=== PATIENT | female | born 1970 | race Caucasian/White ===

== ENCOUNTER 2025-07-31 10:47 | Inpatient (IN) | payer MEDICARE, OTHER, SELFPAY ==
[2025-07-31 10:49] VITALS: BP 131/96; PULSE 83; RESP 14; TEMP 36.7; O2SAT 100
[2025-07-31 10:56] VITALS: BP 131/96; O2SAT 100
--- NOTE | 2025-07-31 11:00 | CT_ITS ---
WS: [id number] Exam: CT abdomen pelvis w con* [id number] Date/Time of Exam: 07/31/2025 11:01 AM Reason For Exam: abd pain DLP: 378.[address] scans at [facility] use at least one of these dose optimization techniques: automated exposure control; mA and/or kV adjustment per patient size (includes targeted exams where dose is matched to clinical indication); or iterative reconstruction. No comparisons. Mild fibrous changes noted in the lower lung zones most likely chronic in nature. The liver, gallbladder, spleen and pancreas appear normal. Normal adrenal glands and kidneys. The abdominal aorta and IVC are normal in caliber. There is mild to moderate gaseous and fluid dilatation of the duodenal C-loop. Remaining small bowel loops are normal in caliber. RIGHT lower quadrant ostomy is noted. No lymphadenopathy. No free air. Postoperative changes with sutures noted in the region of the rectosigmoid colon with soft tissue thickening in the presacral and precoccygeal area. This could be secondary to postoperative change or postradiation change however recurrent neoplasm could have the same appearance. Moderate distention of the urinary bladder. No obvious pelvic lymphadenopathy. No sign of acute appendix. The appendix is difficult to define. No destructive bone lesions. Biconcave old compression fracture of L5. CT/CT abdomen pelvis w con* [id number] IMPRESSION: 1. Mild to moderate fluid and gaseous distention of the duodenal C-loop. This c ould represent localized ileus or less likely partial obstruction. 2. RIGHT lower quadrant ostomy. 3. Postoperative changes in the region of the rectosigmoid colon. There is soft tissue thickening in the presacral and precoccygeal area that could be seconda ry to postoperative or postradiation change however recurrent neoplasm in this area could have the same appearance. There are no comparison exams to determine the chronicity of these changes.
[2025-07-31 11:11] LABS: Hematocrit 43.9 % (36-47); Hemoglobin 15.00 g/dL (11.27-16.99); Mean Corpuscular HGB Conc 34.2 g/dL (30-55); Mean Corpuscular Hemoglobin 30.5 pg (27-33); Mean Corpuscular Volume 89.2 fl (85-98); Nucleated Red Blood Cells % 0 %; Platelet Count 185 10^3/cmm (157-399); Red Blood Count 4.92 10^6/uL (3.85-5.65); White Blood Count 5.79 10^3/uL (3.29-11.43)
--- NOTE | 2025-07-31 11:23 | ED_ITS ---
HPI - General Adult 2 General: Chief complaint: General Medical Stated complaint: mhe Time Seen by Provider: 07/31/25 10:48 History of Present Illness: 55-year-old female presents to the [facility] ency room with complaints of weight loss.. She has a history of schizophrenia. She states she is not eating or drinking because she finds the food and water repulsive. She has a history of schizophrenia she has a guardian is in the [place] [facility] because of failure to thrive. Associated symptoms: Reports malaise and nausea; Deny chest pain, dyspnea or rash Related Data Home Medications ?Medication ?Instructions ?Recorded ?Confirmed acetaminophen 500 mg tablet 500 mg PO Q6H PRN Fever Or Pain 07/31/25 07/31/25 (Tylenol Extra Strength) pantoprazole 40 mg tablet,delayed 40 mg PO DAILY 07/3107/31/25 release polyethylene glycol 3350 17 17 g PO DAILY PRN Constipa tion 07/31/25 07/31/25 gram/dose oral powder vit no.95-ferrous 1 tab PO DAILY 07/31/25 fumarate 28 mg-folic acid 800 mcg tablet () risperidone 0.5 mg tablet 0.5 mg PO BID 07/31/2507/31 Allergies Allergy/AdvReac Type Severity Reaction Status Date / Time iodine Allergy Unknown Verified 07/31/25 10:54 Review of Systems 2 Const: Reports: change in appetite, fatigue and malaise; Denies: fever(s) or chills Card: Denies: chest pain Resp: Denies: dyspnea GI: Reports: abdominal pain and nausea : Denies: dysuria, urinary frequency or urinary urgency Musc: Denies: neck pain or back pain Skin/Breast: Denies: rash PFSH ED 2 PFSH: Medical History Schizophrenia Anorexia Major depressive disorder Colon cancer metastasized to multiple sites Surgical History H/O resection of rectum H/O: hysterectomy H/O pneumonectomy History of creation of ostomy History of colon resection Family History Father Pulmonary fibrosis Mother No problems noted. Social History Smoking and tobacco/nicotine status: never used tobacco/nicotine Alcohol intake: never Substance/Drug Use: never Household members: other Details: Did not know Mother Housing: Assisted Living Facility Physical Exam 2 Const: GENERAL APPEARANCE: cooperative ORIENTATION/CONSCIOUSNESS: Yes awake HENMT: COMMON NORMALS: normocephalic, atraumatic and hearing grossly normal bilaterally HEAD & SCALP: normocephalic and atraumatic Resp: COMMON NORMALS: normal respiratory effort, No retractions, No use of accessory muscles and clear to auscultation bilaterally AUSCULTATION: clear to auscultation bilaterally Cardio: COMMON NORMALS: regular rate, regular rhythm and No murmurs present (Cardio) RATE: regular rate RHYTHM: regular rhythm GI: COMMON NORMALS: No hepatosplenomegaly present AUSCULTATION: Yes Hypoactive bowel sounds present PALPATION: Yes Tenderness to palpation present (GI) (Diffuse), No Guarding due to palpation present (GI) and Yes No hepatosplenomegaly present Back/Pelvis: OTHER: Examination of the presacral area there is no evidence of any skin breakdown or ulceration there is some scarring there from previous sacral ulcers. No active wounds or open ulcers at this time Extremity: COMMON NORMALS: normal to inspection, capillary refill normal, no clubbing, cyanosis or edema, no calf tenderness and no pedal edema Skin: COMMON NORMALS: no rashes or lesions noted GENERAL SKIN EXAM: no rashes or lesions noted Course 2 Vital Signs: Vital signs: Vital Signs Temperature 98.0 F 07/31/25 10:49 Pulse Rate 83 07/31/25 10:49 Respiratory Rate 14 07/31/25 10:49 Blood Pressure 124/84 07/31/25 14:29 Pulse Oximetry 99 07/31/25 14:29 Oxygen Delivery Me thod Room Air 07/31/25 10:56 MDM - General Adult Medical Decision Making Patient would not tolerate exam of the abdomen well. She is complaining of abdominal pain and is question on the CT of ileus. This could actually inhibit her eating and affect her appetite. Discussed with hospitalist with general surgery and psychiatry will admit to the hospital. Evaluate further for medical causes of her decreased appetite she has had extensive evaluation in the past had significant weight loss 1 point that was associated with mental health issues. She has previously been hospitalized here as well as in [place]. Discussed with her father who is her guardian at this point in order to medically fully clear her will need to evaluate the CT findings suggestive of possible ileus. Dr. Ricketts will see her for this simultaneously Dr. Calderon will see her and evaluate her for ongoing mental health issues. Reviewed findings with father. Medical Records I reviewed the patient's medical records. Lab Data I reviewed the patient's lab results. 07/31/25 11:04 07/31/25 11:04 Radiology Impressions Abdomen/Pelvis CT 07/31/25 11:00 IMPRESSION: 1. Mild to moderate fluid and gaseous distention of the duodenal C-loop. This could represent localized ileus or less likely partial obstruction. 2. RIGHT lower quadrant ostomy. 3. Postoperative changes in the region of the rectosigmoid colon. There is soft tissue thickening in the presacral and precoccygeal area that could be secondary to postoperative or postradiation change however recurrent neoplasm in this area could have the same appearance. There are no comparison exams to determine the chronicity of these changes. Laboratory Results WBC 5.79 10^3/uL (3.29-11.43) 07/31/25 11:04 RBC 4.92 10^6/uL (3.85-5.65) 07/31/25 11:04 Hgb 15.00 g/dL (11.27-16.99) 07/31/25 11:04 Hct 43.9 % (36-47) 07/31/25 11:04 MCV 89.2 fl (85-98) 07/31/25 11:04 MCH 30.5 pg (27-33) 07/31/25 11:04 MCHC 34.2 g/dL (30-55) 07/31/25 11:04 RDW 12.9 % (12.1-15.1) 07/31/25 11:04 Plt Count 185 10^3/cmm (157-399) 07/31/25 11:04 MPV 11.2 fL (7.4-10.4) H 07/31/25 11:04 Neut % (Auto) 74.1 % 07/31/25 11:04 Lymph % (Auto) 21.1 % 07/31/25 11:04 Moffat % (Auto) 4.3 % 07/31/25 11:04 Eos % (Auto) 0.0 % 07/31/25 11:04 Baso % (Auto) 0.2 % 07/31/25 11:04 Neut # (Auto) 4.29 10^3/uL (1.8-7.7) 07/31/25 11:04 Lymph # (Auto) 1.2 10^3/uL (0.8-4.8) 07/31/25 11:04 Moffat # (Auto) 0.3 10^3/uL (0.2-0.9) 07/31/25 11:04 Eos # (Auto) 0.0 10^3/uL (0.0-0.8) 07/31/25 11:04 Baso # (Auto) 0.0 10^3/uL (0.0-0.1) 07/31/25 11:04 Nucleated RBC % (auto) 0 % 07/31/25 11:04 Nucleated RBCs # 0.0 /100WBC 07/31/25 11:04 Sodium 140 mmol/L (136-145) 07/31/25 11:04 Potassium 3.5 mmol/L (3.5-5.1) 07/31/25 11:04 Chloride 102 mmol/L (98-107) 07/31/25 11:04 Carbon Dioxide 15 mmol/L (22-29) L 07/31/25 11:04 Anion Gap 26.5 (5-19) H 07/31/25 11:04 BUN 16 mg/dL (6-20) 07/31/25 11:04 Creatinine 0.7 mg/dL (0.5-0.9) 07/31/25 11:04 GFR Calculation 87.5 mL/min (90-130) L 07/31/25 11:04 Glucose 66 mg/dL (65-115) 07/31/25 11:04 Calculated Osmolality 289 mOsm/kg (285-295) 07/31/25 11:04 Calcium 9.5 mg/dL (8.5-10.5) 07/31/25 11:04 Total Bilirubin 0.7 mg/dL (0.15-1.2) 07/31/25 11:04 AST 21 U/L (0-32) 07/31/25 11:04 ALT 25 U/L (0-33) 07/31/25 11:04 Alkaline Phosphatase 59 U/L (35-105) 07/31/25 11:04 Total Protein 8.1 g/dL (6.6-8.7) 07/31/25 11:04 Albumin 4.8 g/dL (3.5-5.2) 07/31/25 11:04 Globulin 3.3 g/dL (1.3-4.6) 07/31/25 11:04 Salicylates < 0.3 mg/dL (3-10) L 07/31/25 11:04 Acetaminophen < 5.0 ug/mL (10-30) L 07/31/25 11:04 All radiology interpretation(s) finalized by discharge Discharge Plan Discharge Patient Disposition: Placed in Observation Clinical Impression: Ileus, History of cancer of rectosigmoid junction, Schizophrenia Coding Level of Care Code ED [employer] Administrator for Antonia Mortensen
[2025-07-31 11:35] LABS: Alanine Aminotransferase 25 U/L (0-33); Albumin Level 4.8 g/dL (3.5-5.2); Alkaline Phosphatase 59 U/L (35-105); Anion Gap 26.5 (5-19); Aspartate Amino Transferase 21 U/L (0-32); Blood Urea Nitrogen 16 mg/dL (6-20); Calcium 9.5 mg/dL (8.5-10.5); Carbon Dioxide 15 mmol/L (22-29); Chloride 102 mmol/L (98-107); Globulin 3.3 g/dL (1.3-4.6); Glucose 66 mg/dL (65-115); Osmolality Calculated 289 mOsm/kg (285-295); Potassium 3.5 mmol/L (3.5-5.1); Sodium 140 mmol/L (136-145); Total Protein 8.1 g/dL (6.6-8.7)
[2025-07-31 11:37] LABS: Acetaminophen < 5.0 ug/mL (10-30); Salicylate < 0.3 mg/dL (3-10)
[2025-07-31] MEDS: methylPREDNISolone sod succ 40 mg/mL INJ IVP (13:05)
[2025-07-31] MEDS: diphenhydrAMINE 50 mg/mL SDV 1mL IVP (13:05)
[2025-07-31] MEDS: iohexol 350 mg/mL 500 mL Btl (per mL) IV (13:26)
--- NOTE | 2025-07-31 13:34 | PC.NURSE ---
Pt making inappropriate statements towards staff. Nurse told pt it is not funny to be making such statements.
--- NOTE | 2025-07-31 14:19 | PM.MISC ---
Miscellaneous Note Note: Full consult note to follow. Consulted to rule out bowel obstruction. Low suspicion for bowel obstruction. Recommend UGI study to rule out obstruction. Will be admitted to medicine for UGI study and subsequent psychiatric workup.
--- NOTE | 2025-07-31 14:21 | PM.CONSULT ---
Providers/Reason For Consult Consulting Physician/Specialty*: Dr. Ricketts general surgery Reason for Consult*: Rule out bowel obstruction Primary Care Provider: Cal Torres History of Present Illness History of Present Illness Lamar Duke is a 55 year old female whom surgery was consulted to rule out a bowel obstruction. Ostomy is functional. Patient reported some nausea initially. Abdomen is benign. Reviewed CT scan which shows no hard evidence of a bowel obstruction. Medications/Allergies Home Medications ?Medication ?Instructions ?Recorded ?Confirmed ?Last Taken ?Type acetaminophen 500 mg tablet 500 mg PO Q6H PRN Fever Or Pain 07/31/25 07/31/25 07/28/25 05:00 History (Tylenol Extra Strength) pantoprazole 40 mg tablet,delayed 40 mg PO DAILY 07/31/25 07/31/25 07/31/25 06:00 History release polyethylene glycol 3350 17 17 g PO DAILY PRN Constipation 07/31/25 07/31/25 Unknown History gram/dose oral powder vit no.95-ferrous 1 tab PO DAILY 07/31/25 07/31/25 07/31/25 06:00 History fumarate 28 mg-folic acid 800 mcg tablet () risperidone 0.5 mg tablet 0.5 mg PO BID 07/31/25 07/31/25 07/31/25 06:00 History Allergies Allergy/AdvReac Type Severity Reaction Status Date / Time iodine Allergy Unknown Verified 07/31/25 10:54 PFSH Acute PFSH: Medical History (Updated 08/01/25 @ 19:14 by Cruz Biswas MD) Schizophrenia Anorexia Major depressive disorder Colon cancer metastasized to multiple sites Surgical History H/O resection of rectum H/O: hysterectomy H/O pneumonectomy History of creation of ostomy History of colon resection Family History Father Pulmonary fibrosis Mother No problems noted. Social History (Updated 07/31/25 @ 16:01 by Stuart Linn MD) Smoking and tobacco/nicotine status: never used tobacco/nicotine Alcohol intake: never Substance/Drug Use: never Household members: other Details: Did not know Mother Housing: Assisted Living Facility Vitals/I&O/Wt Last Vital Signs Temp 98.0 F 07/31/25 10:49 Pulse 83 07/31/25 10:49 Resp 14 07/31/25 10:49 BP 131/96 07/31/25 10:56 Pulse Ox 100 07/31/25 10:56 O2 Del Method Room Air 07/31/25 10:56 Weight last 48 hrs Weight 129 lb Physical Exam Narrative: Chest: Unlabored breathing room air. No lymphadenopathy. Heart: Regular rate and rhythm. Abdomen: Soft, nontender, nondistended. Ostomy functional. Data 08/02/25 03:07 08/02/25 03:07 A&P Assessment and plan 1. Ileus: Plan: 55-year-old female whom surgery was consulted to rule out bowel obstruction. Clinical picture not consistent with bowel obstruction. Consider upper GI study to rule out bowel obstruction. PDMP PDMP Reviewed: Not Reviewed Coding Level of Care Code 97165 Diagnoses Ileus K56.7
[2025-07-31 14:29] VITALS: BP 124/84; O2SAT 99
--- NOTE | 2025-07-31 15:44 | PM.HP ---
Providers/Chief Complaint Admitting Physician: Dr. Linn Primary Care Provider: Cal Torres Chief Complaint: not eating History of Present Illness Lamar Duke is a 55 year old female presenting for not eating and weight loss. PMHx is significant for colon cancer and MDD with schizophrenia, prior episodes of anorexia with significant weight loss in the past. She has had colon and rectal resection and has ostomy in place. She has been admitted to the psych [facility] at other hospitals at times in the past. She has been living in a assisted living facility for the last 6 years. She was discharged from her current facility and is not able to go back there per family. She was brought to the ER for further evaluation of not eating and weight loss. CT was suggestive of possible SOB vs ileus and she was admitted for further evaluation. The patient states she has no obstruction. She had diarrhea last few days and states the food and water at the facility is terrible and won't eat it. The father states that nothing has changed at the facility. Review of Systems Const: Denies: fever(s), chills or body aches Eyes: Denies: blurry vision Card: Denies: chest pain or palpitations Resp: Denies: dyspnea or productive cough GI: Denies: abdominal pain, nausea or vomiting : Denies: flank pain or difficulty voiding Musc: Denies: neck pain, back pain or extremity pain Skin/Breast: Denies: rash, pruritus or skin tenderness Neuro: Denies: headache(s) or sensory changes Psych: Denies: anxiety or depression Medications/Allergies Home Medications ?Medication ?Instructions ?Recorded ?Confirmed ?Last Taken ?Type acetaminophen 500 mg tablet 500 mg PO Q6H PRN Fever Or Pain 07/31/25 07/31/25 07/28/25 05:00 History (Tylenol Extra Strength) pantoprazole 40 mg tablet,delayed 40 mg PO DAILY 07/31/25 07/31/25 07/31/25 06:00 History release polyethylene glycol 3350 17 17 g PO DAILY PRN Constipation 07/31/25 07/31/25 Unknown History gram/dose oral powder vit no.95-ferrous 1 tab PO DAILY 07/31/25 07/31/25 07/31/25 06:00 History fumarate 28 mg-folic acid 800 mcg tablet () risperidone 0.5 mg tablet 0.5 mg PO BID 07/31/25 07/31/25 07/31/25 06:00 History Allergies Allergy/AdvReac Type Severity Reaction Status Date / Time iodine Allergy Unknown Verified 07/31/25 10:54 PFSH Acute PFSH: Medical History (Updated 07/31/25 @ 16:05 by Tom Rangel DO) Schizophrenia Anorexia Major depressive disorder Colon cancer metastasized to multiple sites Surgical History H/O resection of rectum H/O: hysterectomy H/O pneumonectomy History of creation of ostomy History of colon resection Family History Father Pulmonary fibrosis Mother No problems noted. Social History (Updated 07/31/25 @ 16:01 by Stuart Linn MD) Smoking and tobacco/nicotine status: never used tobacco/nicotine Alcohol intake: never Substance/Drug Use: never Household members: other Details: Did not know Mother Housing: Assisted Living Facility Vitals/I&O/Wt Last Vital Signs Temp 98.0 F 07/31/25 10:49 Pulse 83 07/31/25 10:49 Resp 14 07/31/25 10:49 BP 124/84 07/31/25 14:29 Pulse Ox 99 07/31/25 14:29 O2 Del Method Room Air 07/31/25 10:56 Weight last 48 hrs Weight 58.513 kg Physical Exam Const: COMMON NORMALS: no acute distress HENMT: COMMON NORMALS: normocephalic and atraumatic Eye: COMMON NORMALS: Equal, round and reactive pupils present and EOMs intact bilaterally Neck/C-Spine: COMMON NORMALS: full ROM and no lymphadenopathy Lymph: LYMPHATIC: no lymphadenopathy noted Resp: COMMON NORMALS: normal respiratory effort, No retractions and clear to auscultation bilaterally Cardio: COMMON NORMALS: regular rate, regular rhythm, S1 normal heart sound present, S2 normal heart sound present and No gallops present (Cardio) GI: COMMON NORMALS: Soft to palpation and non-tender OTHER: ostomy Extremity: COMMON NORMALS: full ROM Neuro: COMMON NORMALS: patient oriented x3 and CN's II-XII intact bilaterally Psych: COMMON NORMALS: mental status grossly normal, Normal thought process present, cooperative and normal affect Skin: COMMON NORMALS: no rashes or lesions noted and no wounds Data 07/31/25 11:04 07/31/25 11:04 A&P Assessment and plan 1. Ileus: 2. History of cancer of rectosigmoid junction: 3. Schizophrenia: Plan: 55 year old female presenting after weight loss, not eating. Anorexia MDD H/O reported schizophrenia Moderate protein calorie malnutrition - on prior episode of anorexia, patient weighted 65 lbs, currently 128 lbs - last ate on Thursday. - CT demonstrated possible localized ileus vs. partial obstruction - General surgery consulted in ER, low suspicion for obstruction, recommending upper GI study - psych consulted in ER H/O stage 4 colon cancer - prior rectal and bowel resection, ostomy in place - ostomy care Diet: regular, NPO after midnight for UGI PPx: SCDs, hold AC for possible procedure Disposition - full code - consult case mgmt for discharge planning, apparently she cannot return to her assisted living facility - cont. home meds PDMP PDMP Reviewed: Not Reviewed Attestations Medical Necessity Statement*: Admitted to observation for possible SBO Coding Level of Care Code Acute Code for Chg Fwd Diagnoses Ileus K56.7 History of cancer of rectosigmoid junction Z85.048 Schizophrenia F20.9
[2025-07-31 16:07] VITALS: BP 105/68; PULSE 79; RESP 16; O2SAT 100
[2025-07-31 17:07] VITALS: BMI 22.0
[2025-07-31] MEDS: D5-NS 0.45% + KCL 20 mEq 20 MEQ/1,000 ML BAG 100 MEQ IV (17:52)
[2025-07-31 19:30] VITALS: BP 90/73; PULSE 106; RESP 16; TEMP 36.8; O2SAT 97
[2025-07-31 23:53] VITALS: BP 123/85; PULSE 105; RESP 15; TEMP 36.9; O2SAT 96
[2025-08-01] MEDS: D5-NS 0.45% + KCL 20 mEq 20 MEQ/1,000 ML BAG 100 MEQ IV ×3 (03:19→23:39)
[2025-08-01 03:29] VITALS: BP 113/71; PULSE 89; RESP 16; TEMP 36.9; O2SAT 96
[2025-08-01 04:50] LABS: Hematocrit 39.9 % (36-47); Hemoglobin 13.90 g/dL (11.27-16.99); Mean Corpuscular HGB Conc 34.8 g/dL (30-55); Mean Corpuscular Hemoglobin 30.6 pg (27-33); Mean Corpuscular Volume 87.9 fl (85-98); Nucleated Red Blood Cells % 0 %; Platelet Count 185 10^3/cmm (157-399); Red Blood Count 4.54 10^6/uL (3.85-5.65); White Blood Count 6.40 10^3/uL (3.29-11.43)
[2025-08-01 05:31] LABS: Alanine Aminotransferase 19 U/L (0-33); Albumin Level 4.3 g/dL (3.5-5.2); Alkaline Phosphatase 53 U/L (35-105); Anion Gap 23.9 (5-19); Aspartate Amino Transferase 15 U/L (0-32); Blood Urea Nitrogen 10 mg/dL (6-20); Calcium 8.8 mg/dL (8.5-10.5); Carbon Dioxide 12 mmol/L (22-29); Chloride 108 mmol/L (98-107); Creatinine Clr Calc Pharmacy 77.4524; Globulin 2.8 g/dL (1.3-4.6); Glucose 160 mg/dL (65-115); Osmolality Calculated 292 mOsm/kg (285-295); Potassium 3.9 mmol/L (3.5-5.1); Sodium 140 mmol/L (136-145); Total Protein 7.1 g/dL (6.6-8.7)
[2025-08-01 06:47] LABS: Ketone (Acetest) Serum Positive (Negative)
[2025-08-01 07:27] LABS: ABG PCO2 31.3 mmHg (35-45); ABG PH Result 7.31 (7.35-7.45); Alveolar-Arterial Oxygen Gradi 0.9 mmHg (5-10); Arterial Blood Gas Hematocrit 44.5 % (37-47); Blood Gas Sample Type Arterial; Carboxyhemoglobin 0.9 %THgb (0.4-20.1); Glucose Level-ABG 138.0 mg/dL (70-115); HCO3 ABG 15.6 mmol/L (22-26); Ionized Calcium Level - ABG 1.3 mmol/L (1.1-1.4); Methemoglobin 1.1 % (0.4-1.5); Oxygen Saturation ABG 98.8; PO2 ABG 101.0 mmHg (80.0-100.0); Potassium Level - ABG 3.9 mmol/L (3.5-5.0); Sodium Level - ABG 142.0 mmol/L (131-143)
[2025-08-01 07:28] LABS: Blood Gas Operator Identificat GD; Blood Gas Sample Site Brachial, left; PO2 FiO2 Ratio Arterial Blood 480
[2025-08-01 07:59] VITALS: BP 113/77; PULSE 96; RESP 16; TEMP 36.8; O2SAT 96
[2025-08-01] MEDS: PRENATAL VIT NO.130/IRON/FOLIC 1 EACH TABLET PO (08:09)
--- NOTE | 2025-08-01 08:23 | PC.NURSE ---
Notified Dr Linn patient refused risperidone and father also notified.
--- NOTE | 2025-08-01 10:56 | PC.CHAP ---
Pastoral Care Encounter/Spiritual Assessment Type of Contact [x] Declined rejoiner visit [] Patient/Family/Request visit [] Outpatient visit [] Follow-up visit [] Physician referral [] Code/Alert [] Routine visit [] Staff referral [] Actively dying [] Patient sleeping [] Family support [] [] Out of room [] Palliative care [] [] Receiving care in room [] Pre-surgical visit [] Trauma [] Long length of stay [] ICU visit [] Other: Relational/Emotional Strength [] Patient feels connected with others/family/visitors/staff [] Distress [] Loneliness/isolation [] Abandonment Spirituality of Patient [] Person of Cheryl [] Attends Lutheran of their Cheryl [] Believes in Prayer [] Reads Bible or Samaritan materials [] There are Spiritual issues to be addressed Airline Hostess Interventions [] Prayer [] Active listening [] Non-anxious presence [] Spiritual/emotional support [] Crisis/trauma care [] Spiritual counseling [] Bereavement support [] Provided bereavement packet [] Provided Bible/devotional materials [] Provided toy/stuffed animal, coloring book to patient or family member [] Provided Communion [] Anointing/[place] [] Salvation [] Completed spiritual assessment [] Other: Impact on Illness or Injury [] Angry [] Fearful [] Anxious [] Often cries [] Exhaustion [] Unable to work [] Unable to attend faith [] Unable to walk/stand [] Unable to read [] Unable to drive [] Unable to eat/drink [] Unable to sleep [] Unable to be with family [] Patient intubated [] Other: Summary Time spent with patient
[2025-08-01 11:19] VITALS: BP 119/74; PULSE 84; RESP 17; TEMP 36.9; O2SAT 98
--- NOTE | 2025-08-01 13:22 | P.PN_ITS ---
Subjective 2 Subjective: Having BMs, diet advance to CLD. Vitals/I&O/Wt Last Vital Signs Temp 98.5 F 08/01/25 11:19 Pulse 84 08/01/25 11:19 Resp 17 08/01/25 11:19 BP 119/74 08/01/25 11:19 Pulse Ox 98 08/01/25 11:19 O2 Del Method Room Air 08/01/25 11:19 07/31/25 08/01/25 08/01/25 22:59 06:59 14:59 Intake Total 50 / 50 945 / 995 983.333 / 983.333 Output Total 550 / 550 500 / 500 Balance -500 / -500 945 / 445 483.333 / 483.333 Weight last 48 hrs Weight 63.758 kg Weight 61.87 kg Weight 58.513 kg Physical Exam 2 Narrative: Physical Exam Const: no acute distress HENMT: normocephalic and atraumatic Eye: Equal, round and r eactive pupils pre sent and EOMs inta ct bilaterally Neck/C-Spine: full ROM and no ly mphadenopathy Lymph: no lymphadenopathy noted Resp: normal respiratory effort, No retrac tions and clear to auscultation bila terally Cardio: regular rate, regu lar rhythm, S1 nor mal heart sound pr esent, S2 normal h eart sound present and No gallops pr esent GI: Soft to palpation and non-tender, os carloz in place Extremity: full ROM Neuro: patient oriented x 3 and CN's II-XII intact bilaterally Psych: mental status nicolasa sly normal, Normal thought process p resent, cooperativ e and normal affec t Skin: no rashes or lesio ns noted and no wo unds Data 08/01/25 04:18 08/01/25 04:18 A&P Assessment and plan 1. Ileus: 2. History of cancer of rectosigmoid junction: 3. Schizophrenia: Plan: 55 year old female presenting after weight loss, not eating. Anorexia MDD H/O reported schizophrenia Moderate protein calorie malnutrition - on prior episode of anorexia, patient weighted 65 lbs, currently 128 lbs, BMI 22.7 - last ate on Thursday. - CT demonstrated possible localized ileus vs. partial obstruction - General surgery consulted in ER, low suspicion for obstruction, no plans for intervention currently - psych consulted in ER H/O stage 4 colon cancer - prior rectal and bowel resection, ostomy in place - ostomy care Diet: CLD, advance to regular as able. PPx: SCDs, start lovenox Disposition - full code - consult case mgmt for discharge planning, apparently she cannot return to her assisted living facility, will likely need LVL 2. - cont. home meds PDMP PDMP Reviewed: Not Reviewed Attestations 2 Medical Necessity Statement*: Change to inpatient for anorexia, electrolyte replacement. Time Spent in Patient Care: 16 - 35 minutes (>than 50% of time sp ent in counselling and/or direct pt care on unit) . Coding Level of Care Code Acute Code for Chg Fwd Diagnoses Ileus K56.7 History of cancer of rectosigmoid junction Z85.048 Schizophrenia F20.9
--- NOTE | 2025-08-01 13:32 | P.PN_ITS ---
Subjective 2 Subjective: No nausea Ostomy putting out stool and gas No abdominal pain No abdominal distension Refusing UGI study Vitals/I&O/Wt Last Vital Signs Temp 98.5 F 08/01/25 11:19 Pulse 84 08/01/25 11:19 Resp 17 08/01/25 11:19 BP 119/74 08/01/25 11:19 Pulse Ox 98 08/01/25 11:19 O2 Del Method Room Air 08/01/25 11:19 07/31/25 08/01/25 08/01/25 22:59 06:59 14:59 Intake Total 50 / 50 945 / 995 983.333 / 983.333 Output Total 550 / 550 500 / 500 Balance -500 / -500 945 / 445 483.333 / 483.333 Weight last 48 hrs Weight 140 lb 9 oz Weight 136 lb 6.4 oz Weight 129 lb Physical Exam 2 Narrative: unlabored breathing ra rrr abdomen soft, nd, ostomy functional and putting out gas and stool. Patient refusing palpation of abdomen Data 08/01/25 04:18 08/01/25 04:18 A&P Assessment and plan 1. Ileus: Plan: 55yo female whom surgery was consulted to rule out bowel obstruction. Clinically not obstructed. Patient refusing UGI study. OK to advance diet as tolerated. Rest of care per medicine. PDMP PDMP Reviewed: Not Reviewed Attestations 2 Medical Necessity Statement*: NA Coding Level of Care Code 48468 Diagnoses Ileus K56.7
[2025-08-01 15:25] VITALS: BP 131/80; PULSE 87; RESP 17; TEMP 36.3; O2SAT 97
--- NOTE | 2025-08-01 18:14 | PC.NURSE ---
Patient refused respiridone for the 2nd time today. Patient physician and father aware.
--- NOTE | 2025-08-01 18:49 | P.NPUCON_ITS ---
Providers/Reason for Consult 2 Consulting Physican/Specialty*: [facility]/Psychiatry Reason for Consult*: food refusal Attending Physician: Stuart Linn MD Primary Care Provider: Cal Torres Psych Consult HPI History of Present Illness Lamar Duke is a 55 year old female who presented to the emergency department with complaints of weight loss. She had allegedly been residing at a correction and was not eating or drinking as she had found the food and water to be repulsive. The patient has her father as the legal guardian for reportedly the last 6 years. The patient reports that she had been diagnosed initially with colon cancer more than 20 years ago. She reports she is not schizophrenic and reports that she is not currently depressed. She states that she is simply refusing to eat at the correction because the food has become inedible within the last year. She states that prior to that time, she was eating fine. She reports that the current food here has also been inedible. She reports that she simply wants a plain tasty set of mashed potatoes. The patient denied any history of psychosis. She reports that she has no problems with anxiety. She reported no history of binge eating or purging behaviors. She denied any substance abuse issues. She reports that she is currently not having thoughts of hurting herself or anyone else. She was able to answer the question regarding what would happen if she discontinued or quit eating overall as she reported that she would become seriously ill. She denied any body image distortion. The patient did not offer commentary when asked whether she had fear of engaging in oral intake with any potential concern about avoiding pain secondary to a previous problem with abdominal discomfort with oral intake. She did report in general having a lack of appetite. She denied any negative body image. She had minimized having any fear of eating. She did endorse frequently having problems with fatigue and did report having changes to her senses regarding food. There is no prior history of saleem. There was no clear history of obsessive-compulsive disorder. She had refused her Risperdal prescribed stating that she did not need this. The patient was evasive when asked questions regarding why her father had assumed guardianship over her 6 years ago. Psychiatric history: None reported. She reported no prior history of inpatient substance abuse treatment as well Legal history: None Allergies: Iodine Medications: Pantoprazole, acetaminophen, Risperdal 0.5 mg twice a day, iron Medical/Surgical history: as stated Social History: Patient lives in [facility] since 2019, has 2 adult children and several grandchildren. She reports from 1st and only . She reported no history of trauma. She was raised by parents and states father was in . She reports having graduated HS in [employer]. Meds Home Medications and Allergies Home Medications ?Medication ?Instructions ?Recorded ?Confirmed ?Last Taken ?Type acetaminophen 500 mg tablet 500 mg PO Q6H PRN Fever Or Pain 07/31/25 07/31/25 07/28/25 05:00 History (Tylenol Extra Strength) pantoprazole 40 mg tablet,delayed 40 mg PO DAILY 07/3107/31/25 07/31/25 06:00 History release polyethylene glycol 3350 17 17 g PO DAILY PRN Constipa tion 07/31/25 07/31/25 Unknown History gram/dose oral powder vit no.95-ferrous 1 tab PO DAILY 07/31/2507/31/25 06:00 History fumarate 28 mg-folic acid 800 mcg tablet () risperidone 0.5 mg tablet 0.5 mg PO BID 07/31/2507/3107/31/25 06:00 History Allergies Allergy/AdvReac Type Severity Reaction Status Date / Time iodine Allergy Unknown Verified 07/31/25 10:54 Current Medications Current Medications Generic Name Dose Route Start Last Admin Trade Name Freq PRN Reason Stop Dose Admin Enoxaparin Sodium 40 mg 08/01/25 13:45 08/01/25 14:43 Enoxaparin 40 Mg/0.4 Ml Syringe SUBCUT 40 mg Q24H PENNY Administration Potassium Chloride/Dextrose/Sod Cl 20 meq in 1,000 mls @ 100 mls/hr 07/31/25 17:11 08/01/25 13:09 D5-Ns 0.45% + Kcl 20 Meq IV 100 mls/hr .Q10H PENNY Administration Pantoprazole Sodium 40 mg 08/01/25 09:00 08/01/25 08:[address] 40 Mg Tablet PO 40 mg DAILY PENNY Administration Prenat Multivit/[place]/Iron/Folic Ac 1 each 08/01/25 09:00 08/01/25 08:09 Vit No.130/Iron/Folic 1 Each Tablet PO 1 each DAILY PENNY Administration Risperidone 0.5 mg 08/01/25 17:00 08/01/25 18:13 Risperidone 0.25 Mg Tablet PO Not Given BID@0500,1700 [facility] PFSH NPU 2 PFSH: Medical History (Updated 08/01/25 @ 19:14 by Cruz Biswas MD) Schizophrenia Anorexia Major depressive disorder Colon cancer metastasized to multiple sites Surgical History H/O resection of rectum H/O: hysterectomy H/O pneumonectomy History of creation of ostomy History of colon resection Family History Father Pulmonary fibrosis Mother No problems noted. Social History (Updated 07/31/25 @ 16:01 by Stuart Linn MD) Smoking and tobacco/nicotine status: never used tobacco/nicotine Alcohol intake: never Substance/Drug Use: never Household members: other Details: Did not know Mother Housing: Assisted Living Facility Mental Status Exam 2 MSE Comments: White female who appeared her stated age covered by blankets with fleeting eye contact. There was no evidence of any abnormal involuntary motor movements, tics or tremors appreciated. Her speech was normal in regards to rate, rhythm, and prosody. She was quite evasive during the interview. Her mood was described as fine. Her affect was somewhat restricted in range and mood incongruent. Her thought process was linear, logical, and goal-directed. Her thought content revealed no suicidal or homicidal ideation. There was no evidence of any delusional thinking. She did not appear to be responding to internal stimuli. She denied any auditory or visual hallucinations. She was alert and oriented to person, place, time, and situation. She had numerous complaints about not appreciating her food as she repeatedly stated she wanted to eat but wanted to eat better food. Her insight is impaired. Her impulse control appeared fair. Her judgment was limited. Her attention span appeared adequate. Her recent and remote memory were adequate. Vitals/I&O/Wt Last Vital Signs Temp 97.4 F L 08/01/25 15:25 Pulse 87 08/01/25 15:25 Resp 17 08/01/25 15:25 BP 131/80 08/01/25 15:25 Pulse Ox 97 08/01/25 15:25 O2 Del Method Room Air 08/01/25 15:25 08/01/25 08/01/25 08/01/25 06:59 14:59 22:59 Intake Total 945 / 995 983.333 / 983.333 Output Total 500 / 500 200 / 700 Balance 945 / 445 483.333 / 483.333 -200 / 283.333 Weight last 48 hrs Weight 63.758 kg Weight 61.87 kg Weight 58.513 kg Data NPU 08/01/25 04:18 08/01/25 04:18 A&P Assessment and plan 1. Avoidant-restrictive food intake disorder (ARFID): Plan: 55-year-old female who shows evidence of an eating disorder likely characterized by the avoidance or restriction of food intake. It is possible that this was caused by a lack of interest in eating or fear of aversive consequences such as abdominal discomfort or pain. 1. Will continue to follow 2. Will attempt to gather collateral information particularly from legal guardian 3. Supportive strategies may include nutritional counseling, smaller or more frequent meals, possible medications to stimulate appetite. PDMP PDMP Reviewed: Not Reviewed Attestations NPU 2 Medical Necessity Statement*: Inpatient psychiatric hospitalization not medically necessary currently. Coding Level of Care Code Acute Code for Chg Fwd Diagnoses Avoidant-restrictive food intake disorder (ARFID) F50.82
[2025-08-01 19:04] VITALS: BP 125/79; PULSE 77; RESP 16; TEMP 37.1; O2SAT 100
--- NOTE | 2025-08-01 22:14 | PC.NURSE ---
Patient is having output in the colostomy but will not allow this aide to measure properly due to patient changing her own colostomy and immediately disposing of it. This aide requested patient to let us measure output prior to her disposing of it.
[2025-08-01 23:27] VITALS: BP 109/63; PULSE 78; RESP 15; TEMP 36.9; O2SAT 96
[2025-08-02 03:04] VITALS: BP 100/56; PULSE 83; RESP 15; TEMP 36.6; O2SAT 96
[2025-08-02 04:24] LABS: Hematocrit 35.7 % (36-47); Hemoglobin 12.50 g/dL (11.27-16.99); Mean Corpuscular HGB Conc 35.0 g/dL (30-55); Mean Corpuscular Hemoglobin 30.9 pg (27-33); Mean Corpuscular Volume 88.4 fl (85-98); Nucleated Red Blood Cells % 0 %; Platelet Count 146 10^3/cmm (157-399); Red Blood Count 4.04 10^6/uL (3.85-5.65); White Blood Count 5.12 10^3/uL (3.29-11.43)
[2025-08-02 04:51] LABS: Anion Gap 15.6 (5-19); Blood Urea Nitrogen 5 mg/dL (6-20); Calcium 8.5 mg/dL (8.5-10.5); Carbon Dioxide 19 mmol/L (22-29); Chloride 109 mmol/L (98-107); Creatinine Clr Calc Pharmacy 104.5626; Glucose 110 mg/dL (65-115); Osmolality Calculated 288 mOsm/kg (285-295); Potassium 3.6 mmol/L (3.5-5.1); Sodium 140 mmol/L (136-145)
--- NOTE | 2025-08-02 07:13 | P.PN_ITS ---
Subjective 2 Subjective: No acute events overnight Vitals/I&O/Wt Last Vital Signs Temp 97.8 F 08/02/25 03:04 Pulse 83 08/02/25 03:04 Resp 15 08/02/25 03:04 BP 100/56 08/02/25 03:04 Pulse Ox 96 08/02/25 03:04 O2 Del Method Room Air 08/02/25 03:04 08/01/25 08/02/25 08/02/25 22:59 06:59 14:59 Intake Total 1000 / 1983.333 Output Total 200 / 700 300 / 1000 Balance -200 / 283.333 700 / 983.333 Weight last 48 hrs Weight 143 lb 5 oz Weight 140 lb 9 oz Weight 136 lb 6.4 oz Weight 129 lb Physical Exam 2 Narrative: Chest: Unlabored breathing room air. No lymphadenopathy. Heart: Regular rate and rhythm. Abdomen: Soft, nontender, nondistended. No masses or lymphadenopathy. Data 08/04/25 04:10 08/04/25 04:10 A&P Assessment and plan 1. SBO (small bowel obstruction): Plan: 55-year-old female whom surgery was consulted to rule out SBO. No obstructive symptoms. No evidence of SBO. Advance diet as tolerated. PDMP PDMP Reviewed: Not Reviewed Attestations 2 Medical Necessity Statement*: N/A Coding Level of Care Code 13937 Diagnoses SBO (small bowel obstruction) K56.609
[2025-08-02 07:17] VITALS: BP 116/69; PULSE 107; RESP 16; TEMP 36.9; O2SAT 98
[2025-08-02] MEDS: PRENATAL VIT NO.130/IRON/FOLIC 1 EACH TABLET PO (09:36)
[2025-08-02] MEDS: D5-NS 0.45% + KCL 20 mEq 20 MEQ/1,000 ML BAG 100 MEQ IV ×2 (09:37→21:16)
[2025-08-02 12:00] VITALS: BP 103/61; PULSE 119; RESP 18; TEMP 36.7; O2SAT 99
--- NOTE | 2025-08-02 12:18 | P.PN_ITS ---
Subjective 2 Subjective: No new issues. Vitals/I&O/Wt Last Vital Signs Temp 98.0 F 08/02/25 12:00 Pulse 119 H 08/02/25 12:00 Resp 18 08/02/25 12:00 BP 103/61 08/02/25 12:00 Pulse Ox 99 08/02/25 12:00 O2 Del Method Room Air 08/02/25 12:00 08/01/25 08/02/25 08/02/25 22:59 06:59 14:59 Intake Total 1000 / 0301.692 2383.667 / 1236.667 Output Total 200 / 700 300 / 1000 220 / 220 Balance -200 / 283.333 700 / 794.554 5493.667 / 1016.667 Weight last 48 hrs Weight 65.005 kg Weight 63.758 kg Weight 61.87 kg Physical Exam 2 Narrative: Physical Exam Const: no acute distress HENMT: normocephalic and atraumatic Eye: Equal, round and reactive pupils and EOMs intact bilaterally Neck/C-Spine: full ROM and no lymphadenopathy Resp: normal respiratory effort, No retractions and clear to auscultation bilaterally Cardio: regular rate, regular rhythm, S1 normal heart sound present, S2 normal heart sound present and No gallops present GI: Soft to palpation and non-tender, ostomy in place Extremity: full ROM Neuro: patient oriented x 3 and CN's II-XII intact bilaterally Psych: mental status grossly normal, Normal thought process present, cooperative and normal affect Skin: no rashes or lesions noted and no wounds Data 08/02/25 03:07 08/02/25 03:07 A&P Assessment and plan 1. Avoidant-restrictive food intake disorder (ARFID): 2. Schizophrenia: 3. History of cancer of rectosigmoid junction: Plan: 55 year old female presenting after weight loss, not eating. Anorexia MDD H/O reported schizophrenia Moderate protein calorie malnutrition - one prior episode of anorexia, patient weighted 65 lbs, currently 128 lbs, BMI 22.7 - last ate on Thursday. - CT demonstrated possible localized ileus vs. partial obstruction - General surgery consulted in ER, low suspicion for obstruction, no plans for intervention currently - psych consulted in ER - cont. D5 1/2 NS with 20 K at 100 ml/hr until eating/drinking well. H/O stage 4 colon cancer - prior rectal and bowel resection, ostomy in place - ostomy care, having good output. Diet: advance diet to regular. PPx: SCDs, start lovenox Disposition - full code - consult case mgmt for discharge planning, apparently she cannot return to her assisted living facility, will likely need LVL 2. - cont. home meds PDMP PDMP Reviewed: Not Reviewed Attestations 2 Medical Necessity Statement*: Ongoing inpatient care for malnutrition, working on LVL2 placement. Time Spent in Patient Care: 16 - 35 minutes (>than 50% of time sp ent in counselling and/or direct pt care on unit) . Coding Level of Care Code Acute Code for Chg Fwd Diagnoses Avoidant-restrictive food intake disorder (ARFID) F50.82 Schizophrenia F20.9 History of cancer of rectosigmoid junction Z85.048
[2025-08-02 15:42] VITALS: BP 122/74; PULSE 78; RESP 17; TEMP 36.9; O2SAT 97
--- NOTE | 2025-08-02 19:39 | W.PM.NPUPNS ---
Subjective NPU Subjective: 55-year-old female with avoidant/restrictive food intake disorder admitted with continued weight loss and refusal to eat. The patient continued to report having no problems. She appeared wholly disinterested in a conversation with this principal technical writer. She had refused to take her risperidone. She had denied having any problems with her mood. Mental Status Exam MSE Comments: White female who appeared her stated age covered by blankets with minimal eye contact. There was no evidence of any abnormal involuntary motor movements, tics or tremors appreciated. Her speech was normal in regards to rate, rhythm, and prosody. She was quite evasive during the interview. Her mood was described as good. Her affect was irritable. Her thought process was linear, logical, and goal-directed. Her thought content revealed no suicidal or homicidal ideation. There was no evidence of any delusional thinking. She did not appear to be responding to internal stimuli. She denied any auditory or visual hallucinations. She was alert and oriented to person, place, time, and situation. Her insight is impaired. Her impulse control appeared fair. Her judgment was limited. Her attention span appeared adequate. Her recent and remote memory were adequate. Vitals/I&O/Wt Last Vital Signs Temp 98.4 F 08/02/25 15:42 Pulse 78 08/02/25 15:42 Resp 17 08/02/25 15:42 BP 122/74 08/02/25 15:42 Pulse Ox 97 08/02/25 15:42 O2 Del Method Room Air 08/02/25 15:42 08/02/25 08/02/25 08/02/25 06:59 14:59 22:59 Intake Total 999 / 1535.150 0109.667 / 1476.667 240 / 1716.667 Output Total 300 / 1000 220 / 220 500 / 720 Balance 700 / 777.918 5209.667 / 1256.667 -260 / 996.667 Weight last 48 hrs Weight 65.005 kg Weight 63.758 kg Data NPU 08/02/25 03:07 08/02/25 03:07 A&P Assessment and plan 1. Avoidant-restrictive food intake disorder (ARFID): Plan: 55-year-old female who shows evidence of an eating disorder likely characterized by the avoidance or restriction of food intake. It is possible that this was caused by a lack of interest in eating or fear of aversive consequences such as abdominal discomfort or pain. 1. Will continue to follow, spoke with guardian who provided a timeline that supports this diagnosis. This principal technical writer seeking any custodial placement for ARFID. 2. Will attempt to gather collateral information particularly from legal guardian 3. Supportive strategies may include nutritional counseling, smaller or more frequent meals, possible medications to stimulate appetite. PDMP PDMP Reviewed: Not Reviewed Attestations NPU Medical Necessity Statement*: NA Coding Level of Care Code Acute Code for Chg Fwd Diagnoses Avoidant-restrictive food intake disorder (ARFID) F50.82
[2025-08-02 20:00] VITALS: BP 118/71; PULSE 67; RESP 14; TEMP 36.6; O2SAT 100
[2025-08-03] VITALS: BP 115/75; PULSE 75; RESP 14; TEMP 36.9; O2SAT 97
[2025-08-03 04:00] VITALS: PULSE 68; RESP 15; TEMP 36.8; O2SAT 96
[2025-08-03 06:00] VITALS: BMI 23.1
[2025-08-03 07:35] VITALS: BP 119/72; PULSE 69; RESP 17; TEMP 36.6; O2SAT 98
[2025-08-03] MEDS: PRENATAL VIT NO.130/IRON/FOLIC 1 EACH TABLET PO (09:01)
[2025-08-03] MEDS: D5-NS 0.45% + KCL 20 mEq 20 MEQ/1,000 ML BAG 100 MEQ IV ×2 (09:05→17:29)
[2025-08-03 12:39] VITALS: PULSE 67; RESP 17; TEMP 36.8; O2SAT 98
--- NOTE | 2025-08-03 12:43 | PM.PN ---
Vitals/I&O/Wt Last Vital Signs Temp 98.3 F 08/03/25 12:39 Pulse 67 08/03/25 12:39 Resp 17 08/03/25 12:39 BP 119/72 08/03/25 07:35 Pulse Ox 98 08/03/25 12:39 O2 Del Method Room Air 08/02/25 15:42 08/02/25 08/03/25 08/03/25 22:59 06:59 14:59 Intake Total 1240 / 2716.667 1480 / 1480 Output Total 800 / 1020 800 / 800 Balance 440 / 1696.667 680 / 680 Weight last 48 hrs Weight 65.005 kg Weight 65.005 kg Data 08/02/25 03:07 08/02/25 03:07 A&P PDMP PDMP Reviewed: Not Reviewed Coding Level of Care Code Acute Code for Chg Fwd
--- NOTE | 2025-08-03 12:48 | P.PN_ITS ---
Subjective 2 Subjective: drinking broth. Awaiting LVL 2 placement. Vitals/I&O/Wt Last Vital Signs Temp 98.3 F 08/03/25 12:39 Pulse 67 08/03/25 12:39 Resp 17 08/03/25 12:39 BP 119/72 08/03/25 07:35 Pulse Ox 98 08/03/25 12:39 O2 Del Method Room Air 08/02/25 15:42 08/02/25 08/03/25 08/03/25 22:59 06:59 14:59 Intake Total 1240 / 2716.667 1480 / 1480 Output Total 800 / 1020 800 / 800 Balance 440 / 1696.667 680 / 680 Weight last 48 hrs Weight 65.005 kg Weight 65.005 kg Physical Exam 2 Narrative: Physical Exam Const: no acute distress HENMT: normocephalic and atraumatic Eye: Equal, round and reactive pupils and EOMs intact bilaterally Neck/C-Spine: full ROM and no lymphadenopathy Resp: normal respiratory effort, No retractions and clear to auscultation bilaterally Cardio: regular rate, regular rhythm, S1 normal heart sound present, S2 normal heart sound present and No gallops present GI: Soft to palpation and non-tender, ostomy in place Extremity: full ROM Neuro: patient oriented x 3 and CN's II-XII intact bilaterally Psych: mental status grossly normal, Normal thought process present, cooperative and normal affect Skin: no rashes or lesions noted and no wounds Data 08/02/25 03:07 08/02/25 03:07 A&P Assessment and plan 1. Avoidant-restrictive food intake disorder (ARFID): 2. Schizophrenia: 3. History of cancer of rectosigmoid junction: 4. Ileus: Plan: 55 year old female presenting after weight loss, not eating. Anorexia (avoidance/restriction of food intake) MDD H/O reported schizophrenia Moderate protein calorie malnutrition - one prior episode of anorexia, patient weighted 65 lbs, currently 128 lbs, BMI 22.7 - last ate on Thursday. - CT demonstrated possible localized ileus vs. partial obstruction - General surgery consulted in ER, low suspicion for obstruction, no plans for intervention currently - psych consulted in ER - cont. D5 1/2 NS with 20 K at 100 ml/hr until eating/drinking well. - recommend against invasive measures for feeding such as NGT or PEG. H/O stage 4 colon cancer - prior rectal and bowel resection, ostomy in place - ostomy care, having good output. Diet: advance diet to regular. PPx: SCDs, start lovenox Disposition - full code - consult case mgmt for discharge planning, apparently she cannot return to her assisted living facility, will likely need LVL 2. - cont. home meds PDMP PDMP Reviewed: Not Reviewed Attestations 2 Medical Necessity Statement*: ongoing inpatient care for malnutrition. Time Spent in Patient Care: 16 - 35 minutes (>than 50% of time sp ent in counselling and/or direct pt care on unit) . Coding Level of Care Code Acute Code for Chg Fwd Diagnoses Avoidant-restrictive food intake disorder (ARFID) F50.82 Schizophrenia F20.9 History of cancer of rectosigmoid junction Z85.048 Ileus K56.7
[2025-08-03 16:35] VITALS: BP 120/83; PULSE 73; RESP 16; TEMP 36.8; O2SAT 99
[2025-08-03 20:00] VITALS: BP 120/83; PULSE 77; RESP 15; TEMP 36.8; O2SAT 100
[2025-08-04] VITALS: BP 105/68; PULSE 78; RESP 16; TEMP 36.6; O2SAT 97
[2025-08-04 03:12] VITALS: BP 117/72; PULSE 75; RESP 15; TEMP 36.8; O2SAT 98
[2025-08-04] MEDS: D5-NS 0.45% + KCL 20 mEq 20 MEQ/1,000 ML BAG 100 MEQ IV ×2 (03:24→13:44)
[2025-08-04 04:41] LABS: Hematocrit 36.7 % (36-47); Hemoglobin 12.70 g/dL (11.27-16.99); Mean Corpuscular HGB Conc 34.6 g/dL (30-55); Mean Corpuscular Hemoglobin 30.3 pg (27-33); Mean Corpuscular Volume 87.6 fl (85-98); Nucleated Red Blood Cells % 0 %; Platelet Count 128 10^3/cmm (157-399); Red Blood Count 4.19 10^6/uL (3.85-5.65); White Blood Count 4.74 10^3/uL (3.29-11.43)
[2025-08-04 05:05] LABS: Anion Gap 16.6 (5-19); Blood Urea Nitrogen 2 mg/dL (6-20); Calcium 8.7 mg/dL (8.5-10.5); Carbon Dioxide 23 mmol/L (22-29); Chloride 108 mmol/L (98-107); Creatinine Clr Calc Pharmacy 105.4164; Glucose 116 mg/dL (65-115); Osmolality Calculated 295 mOsm/kg (285-295); Potassium 3.6 mmol/L (3.5-5.1); Sodium 144 mmol/L (136-145)
[2025-08-04 06:00] VITALS: BMI 23.6
[2025-08-04 07:46] VITALS: BP 120/79; PULSE 91; RESP 17; TEMP 36.6; O2SAT 97
[2025-08-04] MEDS: PRENATAL VIT NO.130/IRON/FOLIC 1 EACH TABLET PO (08:39)
[2025-08-04 11:46] VITALS: BP 123/76; PULSE 76; RESP 17; TEMP 36.6; O2SAT 99
--- NOTE | 2025-08-04 13:39 | P.PN_ITS ---
Subjective 2 Subjective: No new issues. Vitals/I&O/Wt Last Vital Signs Temp 97.8 F 08/04/25 11:46 Pulse 76 08/04/25 11:46 Resp 17 08/04/25 11:46 BP 123/76 08/04/25 11:46 Pulse Ox 99 08/04/25 11:46 O2 Del Method Room Air 08/04/25 03:12 08/03/25 08/04/25 08/04/25 22:59 06:59 14:59 Intake Total 1260 / 2740 991.667 / 3731.667 240 / 240 Output Total 1000 / 1800 Balance 260 / 940 991.667 / 1931.667 240 / 240 Weight last 48 hrs Weight 66.253 kg Weight 65.005 kg Physical Exam 2 Narrative: Physical Exam Const: no acute distress HENMT: normocephalic and atraumatic Eye: Equal, round and reactive pupils and EOMs intact bilaterally Neck/C-Spine: full ROM and no lymphadenopathy Resp: normal respiratory effort, No retractions and clear to auscultation bilaterally Cardio: regular rate, regular rhythm, S1 normal heart sound present, S2 normal heart sound present and No gallops present GI: Soft to palpation and non-tender, ostomy in place Extremity: full ROM Neuro: patient oriented x 3 and CN's II-XII intact bilaterally Psych: mental status grossly normal, Normal thought process present, cooperative and normal affect Skin: no rashes or lesions noted and no wounds Data 08/04/25 04:10 08/04/25 04:10 A&P Assessment and plan 1. Avoidant-restrictive food intake disorder (ARFID): Plan: 55 year old female presenting after weight loss, not eating. Primary Eating disorder (avoidance/restriction of food intake) MDD H/O reported schizophrenia Moderate protein calorie malnutrition - one prior episode of anorexia, patient weighted 65 lbs, currently 128 lbs, BMI 22.7 - last ate on Thursday. - CT demonstrated possible localized ileus vs. partial obstruction - General surgery consulted in ER, low suspicion for obstruction, no plans for intervention currently - psych consulted in ER - cont. D5 1/2 NS with 20 K at 100 ml/hr until eating/drinking well. - recommend against invasive measures for feeding such as NGT or PEG. H/O stage 4 colon cancer - prior rectal and bowel resection, ostomy in place - ostomy care, having good output. Diet: advance diet to regular. PPx: SCDs, start lovenox Disposition - full code - consult case mgmt for discharge planning, apparently she cannot return to her assisted living facility - LVL 2 will be completed on Thursday. - cont. home meds - discussed with daughter, concerned about the patient not taking risperidone, worried that she will start losing weight again. - discussed with psychiatry. He states that the risperidone is primarily there for appetite stimulation and not for psychiatric issues, no schizophrenia. He further states that with avoidance behavior, appetite stimulation typically doesn't work well. She will likely need extensive behavioral therapy. - Patient is medically stable to transfer to [facility]. PDMP PDMP Reviewed: Not Reviewed Attestations 2 Medical Necessity Statement*: ongoing inpatient for level 2, avoidant-restrictive food disorder. Time Spent in Patient Care: 16 - 35 minutes (>than 50% of time sp ent in counselling and/or direct pt care on unit) . Coding Level of Care Code Acute Code for Chg Fwd Diagnoses Avoidant-restrictive food intake disorder (ARFID) F50.82
--- NOTE | 2025-08-04 15:48 | W.PM.NPUPNS ---
Subjective NPU Subjective: 55-year-old female with ARFIDS and history of psychosis currently on the medical surgical unit awaiting placement at an skilled nursing. The patient had been consuming broth. She continued to refuse any oral risperidone. This program writer spoke with the family today privately and they had provided significant information stating that the patient's problems with the eating had been preceded by episodes of what were described as saleem with evidence of psychosis who. The patient's daughter had stated that the patient had previously done very well with risperidone to help manage her mood fluctuations and her psychosis. Patient in the absence of her risperidone had shown in the evidence of declining and the guardian had spoken about the potential benefits of reintroducing risperidone or paliperidone. The patient remained somewhat resistant to changes and reported her mood as okay today. She continued to struggle with feeling that something was contaminated as she had engaged in some avoidance and concerns about germs though when asked about this she had refused to discuss this. Mental Status Exam MSE Comments: White female who appeared her stated age covered by blankets with minimal eye contact. There was no evidence of any abnormal involuntary motor movements, tics or tremors appreciated. Her speech was normal in regards to rhythm and prosody. She remained evasive during the interview. Her mood was described as fine Her affect was irritable. Her thought process was linear, logical, and goal-directed. Her thought content revealed no suicidal or homicidal ideation. There was no evidence of any delusional thinking. She did not appear to be responding to internal stimuli. She denied any auditory or visual hallucinations. She was alert and oriented to person, place, time, and situation. Her insight is impaired. Her impulse control appeared fair. Her judgment was limited. Her attention span appeared variable. Her recent and remote memory were grossly intact. Vitals/I&O/Wt Last Vital Signs Temp 97.8 F 08/04/25 11:46 Pulse 76 08/04/25 11:46 Resp 17 08/04/25 11:46 BP 123/76 08/04/25 11:46 Pulse Ox 99 08/04/25 11:46 O2 Del Method Room Air 08/04/25 03:12 08/04/25 08/04/25 08/04/25 06:59 14:59 22:59 Intake Total 991.667 / 3731.667 1480 / 1480 Balance 991.667 / 1633.660 8313 / 1480 Weight last 48 hrs Weight 66.253 kg Weight 65.005 kg Data NPU 08/04/25 04:10 08/04/25 04:10 A&P Assessment and plan 1. Avoidant-restrictive food intake disorder (ARFID): Plan: 55-year-old female who shows evidence of an eating disorder likely characterized by the avoidance or restriction of food intake along with history of psychosis. It is possible that this was caused by a lack of interest in eating or fear of aversive consequences such as abdominal discomfort or pain. 1. Will continue to follow, spoke with guardian who provided a timeline that supports this diagnosis. This program writer seeking any treatment for ARFID whether Inpatient/Intensive Outpatient/or Partial program with the patient ALSO requiring long distance operator nursing care placement. 2. Collateral information was very helpful today. The information provided by the family suggested that the patient may have had initial problems with psychosis that led to her eating problems and eventually supported the diagnosis of ARFID. Likewise, the effects of RFID including malnutrition may have also contributed to worsening psychosis. Although not appearing acutely psychotic at this time in regards to clear delusions or hallucinations, it may be prudent to consider adding a medication to target psychosis. The guardian was agreeable to beginning Invega 234 mg IM with an additional Invega shot of 156 mg in 5 to 7 days. This program writer remains hopeful that if the patient's psychosis improved there would be substantial improvement regarding her eating disorder nonetheless, she does need concurrent help with her eating disorder and information was given to the family regarding 3 potential placements in the [facility] for further treatment. 3. Supportive strategies may include nutritional counseling, smaller or more frequent meals, possible medications to stimulate appetite. PDMP PDMP Reviewed: Not Reviewed Attestations NPU Medical Necessity Statement*: Inpatient psychiatric treatment not recommended at this time. Coding Level of Care Code Acute Code for Chg Fwd Diagnoses Avoidant-restrictive food intake disorder (ARFID) F50.82
--- NOTE | 2025-08-04 15:56 | PC.NURSE ---
Kirk patient's Guardian gives verbal permission to give the shot to patient. He wishes the shot to be given even if patient states that she does not want it. Dr. Escobar is aware.
[2025-08-04 16:47] VITALS: BP 115/78; PULSE 76; RESP 17; TEMP 36.8; O2SAT 100
[2025-08-04] MEDS: paliperidone palmitate 234 mg Syringe IM (18:42)
[2025-08-04 19:33] VITALS: BP 134/84; PULSE 70; RESP 18; TEMP 36.9; O2SAT 100
--- NOTE | 2025-08-05 01:08 | PC.NURSE ---
0015 Pts IV site slightly red and pt states it hurts . IV catheter right AC space removed with tip intact. This nurse attempted to place a 22 gauge left hand. Pt anxious and stating she doesnt think she can take it anymore. Unable to gain IV access. Charge nurse, Radha also attempted insertion of IV catheter and was also not able to gain access. Pt pulls back on arm when sees the catheter getting close to being inserted. Radha contacted ER to get nurse to come insert the IV using ultrasound. Ruby also attempted to insert an IV catheter and patient continued to pull back her arm. Ruby was willing to attempt a second time but patient refused. Pt stated she would think about letting someone try again around 0800.
[2025-08-05 05:41] VITALS: BMI 23.4
[2025-08-05 08:00] VITALS: BP 144/78; PULSE 88; RESP 19; TEMP 36.6; O2SAT 98
[2025-08-05] MEDS: PRENATAL VIT NO.130/IRON/FOLIC 1 EACH TABLET PO (10:03)
[2025-08-05 11:51] VITALS: BP 109/57; PULSE 105; RESP 19; TEMP 36.4; O2SAT 100
--- NOTE | 2025-08-05 12:48 | P.NPUPN_ITS ---
Subjective NPU 2 Subjective: 55-year-old female with ARFIDS and histo ry of psychosis currently on the medical surgical unit awaiting placement at an [facility]. Patient received the Invega shot 234 mg IM yesterday with the 156 mg IM planned in the next 4-5 days. Patient continued to have limited oral consumption. She had stated that she was doing fine and did not wish to discuss her problems any further. Mental Status Exam 2 MSE Comments: White female who appeared her stated age covered by blankets with minimal eye contact with her back turned away to life underwriter. She was disinterested with no evidence of any abnormal involuntary motor movements, tics or tremors appreciated. Her speech was normal in regards to rhythm and prosody. She remained evasive during the interview. Her mood was described as fine Her affect was blunted Her thought process was linear, logical, and goal-directed. Her thought content revealed no suicidal or homicidal ideation. There was no evidence of any delusional thinking. She did not appear to be responding to internal stimuli. She denied any auditory or visual hallucinations. She was alert and oriented to person, place, time, and situation. Her insight is impaired. Her impulse control appeared fair. Her judgment was limited. Her attention span appeared variable. Her recent and remote memory were difficult to assess. Vitals/I&O/Wt Last Vital Signs Temp 97.6 F 08/05/25 11:51 Pulse 105 H 08/05/25 11:51 Resp 19 H 08/05/25 11:51 BP 109/57 08/05/25 11:51 Pulse Ox 100 08/05/25 11:51 O2 Del Method Room Air 08/05/25 11:51 08/04/25 08/05/25 08/05/25 22:59 06:59 14:59 Intake Total 1959 1480 / 1480 Balance 480 / 1959 1480 / 1480 Weight last 48 hrs Weight 65.828 kg Weight 66.253 kg Data NPU 08/04/25 04:10 08/04/25 04:10 A&P Assessment and plan 1. Avoidant-restrictive food intake disorder (ARFID): 2. Unspecified psychosis: Plan: 55-year-old female who shows evidence of an eating disorder likely characterized by the avoidance or restriction of food intake along with history of psychosis. 1. Patient still awaiting placement at new facility with level 2 completed. 2. Plan for IM Invega in 4-5 days (156mg). 3. Initiate Invega oral at night in attempt to facilitate improvement as it takes several days up to 2 weeks to achieve steady state levels of paliperidone after receiving both injections of Invega. 4. Encourage oral intake. 5. Patient needs referral to facility for IOP/inpatient or Partial Program for ARFID.-information given to guardian. PDMP PDMP Reviewed: Not Reviewed Attestations NPU 2 Medical Necessity Statement*: NA. Coding Level of Care Code Acute Code for Chg Fwd Diagnoses Avoidant-restrictive food intake disorder (ARFID) F50.82 Unspecified psychosis F29
--- NOTE | 2025-08-05 13:14 | P.PN_ITS ---
Subjective 2 Subjective: No new issues. Vitals/I&O/Wt Last Vital Signs Temp 97.6 F 08/05/25 11:51 Pulse 105 H 08/05/25 11:51 Resp 19 H 08/05/25 11:51 BP 109/57 08/05/25 11:51 Pulse Ox 100 08/05/25 11:51 O2 Del Method Room Air 08/05/25 11:51 08/04/25 08/05/25 08/05/25 22:59 06:59 14:59 Intake Total 1959 1480 / 1480 Balance 1959 1480 / 1480 Weight last 48 hrs Weight 65.828 kg Weight 66.253 kg Physical Exam 2 Narrative: Physical Exam Const: no acute distress HENMT: normocephalic and atraumatic Eye: Equal, round and reactive pupils and EOMs intact bilaterally Neck/C-Spine: full ROM and no lymphadenopathy Resp: normal respiratory effort, No retractions and clear to auscultation bilaterally Cardio: regular rate, regular rhythm, S1 normal heart sound present, S2 normal heart sound present and No gallops present GI: Soft to palpation and non-tender, ostomy in place Extremity: full ROM Neuro: patient oriented x 3 and CN's II-XII intact bilaterally Psych: mental status grossly normal, Normal thought process present, cooperative and normal affect Skin: no rashes or lesions noted and no wounds Data 08/04/25 04:10 08/04/25 04:10 A&P Assessment and plan 1. Avoidant-restrictive food intake disorder (ARFID): 2. History of cancer of rectosigmoid junction: Plan: 55 year old female presenting after weight loss, not eating. Primary Eating disorder (avoidance/restriction of food intake) MDD H/O reported schizophrenia Moderate protein calorie malnutrition - one prior episode of anorexia, patient weighted 65 lbs, currently 128 lbs, BMI 22.7 - last ate on Thursday. - CT demonstrated possible localized ileus vs. partial obstruction - General surgery consulted in ER, low suspicion for obstruction, no plans for intervention currently - psych consulted in ER - Patient lost IV access, OK to stay off IV fluids, If able to get IV access back, can cont. D5 1/2 NS with 20 K at 100 ml/hr until eating/drinking well. - recommend against invasive measures for feeding such as NGT or PEG. - has been refusing risperidone. - now on IM invega per psychiatry, should continue oral risperidone until this is fully active. H/O stage 4 colon cancer - prior rectal and bowel resection, ostomy in place - ostomy care, having good output. Diet: advance diet to regular. PPx: SCDs, start lovenox Disposition - full code - consult case mgmt for discharge planning, apparently she cannot return to her assisted living facility - LVL 2 will be completed on Thursday. - cont. home meds - discussed with daughter, concerned about the patient not taking risperidone, worried that she will start losing weight again. - now started on IM Invega - Patient needs referral to facility for IOP/inpatient or Partial Program for ARFID.-information given to guardian. - discharge planning after LVL 2 when accepting facility is found. PDMP PDMP Reviewed: Not Reviewed Attestations 2 Medical Necessity Statement*: Ongoing inpatient for placement, eating disorder. Time Spent in Patient Care: 16 - 35 minutes (>than 50% of time sp ent in counselling and/or direct pt care on unit) . Coding Level of Care Code Acute Code for Chg Fwd Diagnoses Avoidant-restrictive food intake disorder (ARFID) F50.82 History of cancer of rectosigmoid junction Z85.048
[2025-08-05 15:25] VITALS: BP 112/68; PULSE 88; RESP 18; TEMP 36.5; O2SAT 99
[2025-08-05 20:00] VITALS: BP 114/81; PULSE 91; RESP 16; TEMP 36.8; O2SAT 99
--- NOTE | 2025-08-05 21:22 | PC.NURSE ---
This nurse attempted to give patient her po invega. Patient stated I took that shot yesterday, I don't want it today. This nurse explained that it was a po medication and patient still refused.
--- NOTE | 2025-08-05 23:56 | PC.NURSE ---
Patient refused to let CASING GRADER take 0000 blood pressure but allowed rest of vitals to be taken. She also does not want her vitals taken again until 5 or 6 am.
[2025-08-06] VITALS: PULSE 77; RESP 17; TEMP 36.8; O2SAT 97
[2025-08-06 08:12] VITALS: BP 93/60; PULSE 88; RESP 15; TEMP 36.7; O2SAT 97
[2025-08-06] MEDS: PRENATAL VIT NO.130/IRON/FOLIC 1 EACH TABLET PO (08:22)
--- NOTE | 2025-08-06 11:28 | P.PN_ITS ---
Subjective 2 Subjective: No new issues. Vitals/I&O/Wt Last Vital Signs Temp 98.1 F 08/06/25 08:12 Pulse 88 08/06/25 08:12 Resp 15 08/06/25 08:12 BP 93/60 08/06/25 08:12 Pulse Ox 97 08/06/25 08:12 O2 Del Method Room Air 08/06/25 08:12 08/05/25 08/06/25 08/06/25 22:59 06:59 14:59 Intake Total 360 / 1840 720 / 720 Balance 360 / 1840 720 / 720 Weight last 48 hrs Weight 65.828 kg Physical Exam 2 Narrative: Physical Exam Const: no acute distress HENMT: normocephalic and atraumatic Eye: Equal, round and reactive pupils and EOMs intact bilaterally Neck/C-Spine: full ROM and no lymphadenopathy Resp: normal respiratory effort, No retractions and clear to auscultation bilaterally Cardio: regular rate, regular rhythm, S1 normal heart sound present, S2 normal heart sound present and No gallops present GI: Soft to palpation and non-tender, ostomy in place Extremity: full ROM Neuro: patient oriented x 3 and CN's II-XII intact bilaterally Psych: mental status grossly normal, Normal thought process present, cooperative and normal affect Skin: no rashes or lesions noted and no wounds Data 08/04/25 04:10 08/04/25 04:10 A&P Assessment and plan 1. Unspecified psychosis: 2. Avoidant-restrictive food intake disorder (ARFID): 3. History of cancer of rectosigmoid junction: Plan: 55 year old female presenting after weight loss, not eating. Primary Eating disorder (avoidance/restriction of food intake) MDD H/O reported schizophrenia Moderate protein calorie malnutrition - one prior episode of anorexia, patient weighted 65 lbs, currently 128 lbs, BMI 22.7 - last ate on Thursday prior to admission. - CT demonstrated possible localized ileus vs. partial obstruction - General surgery consulted in ER, low suspicion for obstruction, no plans for intervention currently - psych consulted in ER - Patient lost IV access, OK to stay off IV fluids, If able to get IV access back, can cont. D5 1/2 NS with 20 K at 100 ml/hr until eating/drinking well. - recommend against invasive measures for feeding such as NGT or PEG. - has been refusing risperidone. - now on IM invega per psychiatry, should continue oral risperidone until this is fully active, although she has been refusing oral medications. H/O stage 4 colon cancer - prior rectal and bowel resection, ostomy in place - ostomy care, having good output. Diet: advance diet to regular. PPx: SCDs, start lovenox Disposition - full code - consult case mgmt for discharge planning, apparently she cannot return to her assisted living facility - LVL 2 will be completed on Thursday. - cont. home meds - discussed with daughter, concerned about the patient not taking risperidone, worried that she will start losing weight again. - now started on IM Invega - Patient needs referral to facility for IOP/inpatient or Partial Program for ARFID.-information given to guardian. - discharge planning after LVL 2 when accepting facility is found. PDMP PDMP Reviewed: Not Reviewed Attestations 2 Medical Necessity Statement*: Ongoing inpatient for primary eating disorder. Lvl 2 placement pending. Time Spent in Patient Care: 16 - 35 minutes (>than 50% of time sp ent in counselling and/or direct pt care on unit) . Coding Level of Care Code Acute Code for Chg Fwd Diagnoses Unspecified psychosis F29 Avoidant-restrictive food intake disorder (ARFID) F50.82 History of cancer of rectosigmoid junction Z85.048
[2025-08-06 12:09] VITALS: PULSE 75; RESP 16; TEMP 36.8; O2SAT 97
--- NOTE | 2025-08-06 12:09 | PC.NURSE ---
Patient Refused blood pressure
--- NOTE | 2025-08-06 13:13 | P.NPUPN_ITS ---
Subjective NPU 2 Subjective: 55-year-old female with ARFIDS and histo ry of psychosis currently on the medical surgical unit awaiting placement at an senior living. The patient continued to refuse oral medications. She had reported that she was fine. She appeared disinterested and reported that everything is fine. The patient reported no complaints but still reported that she wanted to have edible food at her previous location. Mental Status Exam 2 MSE Comments: White female who appeared her stated age covered by blankets with minimal eye contact. She was disinterested with no evidence of any abnormal involuntary motor movements, tics or tremors appreciated. Her speech was normal in regards to rhythm and prosody. She remained guarded. During the interview. Her mood was described as fine Her affect was blunted Her thought process was linear, logical, and goal-directed. Her thought content revealed no suicidal or homicidal ideation. There was no evidence of any delusional thinking. She did not appear to be responding to internal stimuli. She denied any auditory or visual hallucinations. She was alert and oriented to person, place, time, and situation. Her insight is impaired. Her impulse control appeared fair. Her judgment was limited. Her attention span appeared fair. Her recent and remote memory were limited. Vitals/I&O/Wt Last Vital Signs Temp 98.2 F 08/06/25 12:09 Pulse 75 08/06/25 12:09 Resp 16 08/06/25 12:09 BP 93/60 08/06/25 08:12 Pulse Ox 97 08/06/25 12:09 O2 Del Method Room Air 08/06/25 12:09 08/05/25 08/06/25 08/06/25 22:59 06:59 14:59 Intake Total 360 / 1840 720 / 720 Balance 360 / 1840 720 / 720 Weight last 48 hrs Weight 65.828 kg Data NPU 08/04/25 04:10 08/04/25 04:10 A&P Assessment and plan 1. Avoidant-restrictive food intake disorder (ARFID): 2. Unspecified psychosis: Plan: 55-year-old female who shows evidence of an eating disorder likely characterized by the avoidance or restriction of food intake along with history of psychosis. 1. Patient still awaiting placement at new facility with level 2 completed. 2. Plan for IM Invega 156mg on . 3. Continue Invega 3mg oral at night in attempt to facilitate improvement as it takes several days up to 2 weeks to achieve steady state levels of paliperidone after receiving both injections of Invega. 4. Encourage oral intake. 5. Patient needs referral to facility for IOP/inpatient or Partial Program for ARFID.-information given to guardian. PDMP PDMP Reviewed: Not Reviewed Attestations NPU 2 Medical Necessity Statement*: Inpatient psychiatric hospitalization not recommended at this time unless patient were to be placed in medical/psychiatric unit. Coding Level of Care Code Acute Code for Chg Fwd Diagnoses Avoidant-restrictive food intake disorder (ARFID) F50.82 Unspecified psychosis F29
[2025-08-06 15:10] VITALS: PULSE 64; RESP 16; TEMP 36.7; O2SAT 99
--- NOTE | 2025-08-06 15:11 | PC.NURSE ---
Patient refused to let this aide take her blood pressure.
[2025-08-06 22:13] VITALS: BP 112/64; PULSE 79; TEMP 36.6; O2SAT 96
--- NOTE | 2025-08-06 22:14 | PC.NURSE ---
pt emptied colostomy around 1899 but refuses to let us track how much
--- NOTE | 2025-08-06 22:22 | PC.NURSE ---
Patient refused PO paliperidone stating No thank you, I recieved the shot the other day and they told me it would last for a month. Nurse tried to explain that the first shot was a loading dose and the po medication is to help to get the medication into her system and work better. Nurse also explained that her guardian (father) agreed that she needed to take the medication. Patient responded with Tell them i said no thank you, I don not want it. Nurse contacted father to advise him of situation and he stated I am not surprised she is refusing . Nurse also contacted hospitalist Dr. Nugent to advise her of situation. Medication was documented not administered due to patients refusal.
[2025-08-07 05:02] LABS: Hematocrit 34.1 % (36-47); Hemoglobin 11.80 g/dL (11.27-16.99); Mean Corpuscular HGB Conc 34.6 g/dL (30-55); Mean Corpuscular Hemoglobin 30.9 pg (27-33); Mean Corpuscular Volume 89.3 fl (85-98); Nucleated Red Blood Cells % 0 %; Platelet Count 132 10^3/cmm (157-399); Red Blood Count 3.82 10^6/uL (3.85-5.65); White Blood Count 5.13 10^3/uL (3.29-11.43)
[2025-08-07 05:29] LABS: Anion Gap 17.1 (5-19); Blood Urea Nitrogen 9 mg/dL (6-20); Calcium 8.4 mg/dL (8.5-10.5); Carbon Dioxide 27 mmol/L (22-29); Chloride 104 mmol/L (98-107); Creatinine Clr Calc Pharmacy 105.7273; Glucose 91 mg/dL (65-115); Osmolality Calculated 298 mOsm/kg (285-295); Potassium 3.1 mmol/L (3.5-5.1); Sodium 145 mmol/L (136-145)
[2025-08-07 07:13] VITALS: BP 97/58; PULSE 79; RESP 19; TEMP 36.9; O2SAT 96
[2025-08-07] MEDS: PRENATAL VIT NO.130/IRON/FOLIC 1 EACH TABLET PO (08:16)
--- NOTE | 2025-08-07 09:01 | PC.NURSE ---
Called guardian for requested updates He verbalized he requesting to speak with case management would like for her to go to a facility in [place]. also would not like any calls unless it an emergency. He also said Why did the provider order pills I know that she would not take pills he was supposed to only give her shots then got on the phone and was very upset and did not understand. this nurse explained that the medications could not be given as shots daily do to potency and I would speak to the provider about other options. They expressed thanks.
[2025-08-07 11:54] VITALS: BP 102/63; PULSE 76; RESP 19; TEMP 36.8; O2SAT 97
--- NOTE | 2025-08-07 12:15 | PC.SOCIAL ---
IMM Updated Updated pt's family on IMM. No questions voiced. Provided pt a copy. Initialed, dated, & timed copy in chart.
--- NOTE | 2025-08-07 12:41 | P.PN_ITS ---
Subjective 2 Subjective: Hypokalemia today with potassium at 3.1. Does not want oral or IV supplementation for the same. Medications: Reviewed: Yes Vitals/I&O/Wt Last Vital Signs Temp 98.2 F 08/07/25 11:54 Pulse 76 08/07/25 11:54 Resp 19 H 08/07/25 11:54 BP 102/63 08/07/25 11:54 Pulse Ox 97 08/07/25 11:54 O2 Del Method Room Air 08/07/25 11:54 08/06/25 08/07/25 08/07/25 22:59 06:59 14:59 Intake Total 240 / 240 Balance 240 / 240 Weight last 48 hrs Weight 65.459 kg Physical Exam 2 Narrative: General: No acute distress, AO x3 HEENT: PERRLA, pupils bilaterally equal and reactive, pallors not present Chest: Normal vesicular breath sounds, no added sounds, equal good air entry bilaterally CVS: S1-S2 regular, no murmurs, no tachycardia, no gallops, no rubs Abdomen: Soft, nontender, stoma in place Neuro: No focal deficits, no facial deformity, AO x3, power 5/5 in all limbs Data 08/07/25 04:44 08/07/25 04:44 A&P Assessment and plan 1. Unspecified psychosis: 2. Avoidant-restrictive food intake disorder (ARFID): 3. History of cancer of rectosigmoid junction: 4. Hypokalemia: Plan: 55 year old female presenting after weight loss, not eating. Primary Eating disorder (avoidance/restriction of food intake) MDD H/O reported schizophrenia Moderate protein calorie malnutrition - one prior episode of anorexia, patient weighted 65 lbs, currently 128 lbs, BMI 22.7 - last ate on Thursday prior to admission. - CT demonstrated possible localized ileus vs. partial obstruction - General surgery consulted in ER, low suspicion for obstruction, no plans for intervention currently - psych consulted in ER - Patient lost IV access, OK to stay off IV fluids, If able to get IV access back, can cont. D5 1/2 NS with 20 K at 100 ml/hr until eating/drinking well. - recommend against invasive measures for feeding such as NGT or PEG. - has been refusing risperidone. - now on IM invega per psychiatry, should continue oral risperidone until this is fully active, although she has been refusing oral medications. H/O stage 4 colon cancer - prior rectal and bowel resection, ostomy in place - ostomy care, having good output. Diet: advance diet to regular. PPx: SCDs, start lovenox Disposition - full code - consult case mgmt for discharge planning, apparently she cannot return to her assisted living facility - LVL 2 will be completed on Thursday. - cont. home meds - discussed with daughter, concerned about the patient not taking risperidone, worried that she will start losing weight again. - now started on IM Invega - Patient needs referral to facility for IOP/inpatient or Partial Program for ARFID.-information given to guardian. - discharge planning after LVL 2 when accepting facility is found. August 07, 2025 No acute interim events. She is calm and cooperative. She has been drinking broth for breakfast and wants broth again for lunch. Discussed with her low potassium at 3.1. Discussed that hypokalemia may potentially be related to cardiac conduction abnormalities which could be fatal. She states that she would not like to take oral potassium due to its potential to cause GI irritation. Additionally does not want any IV potassium though cannot tell me exactly why. She is agreeable to trying bananas/high potassium foods to see if it can be repleted that way. She will eat 2 bananas today. Will check her potassium again with a.m. labs to assess for improvement. Disposition planning is ongoing. She is pending transfer to inpatient ARFID program. PDMP PDMP Reviewed: Not Reviewed Attestations 2 Medical Necessity Statement*: Ongoing disposition planning Coding Level of Care Code Acute Code for Chg Fwd Diagnoses Unspecified psychosis F29 Avoidant-restrictive food intake disorder (ARFID) F50.82 History of cancer of rectosigmoid junction Z85.048 Hypokalemia E87.6
--- NOTE | 2025-08-07 15:40 | P.NPUPN_ITS ---
Subjective NPU 2 Subjective: 55-year-old female with ARFIDS and histo ry of psychosis currently on the medical surgical unit [place] [facility] [place] [facility]. The patient had diminished potassium. She refused to eat once again other than consuming broth. She had reported no body image distortion. She had continued to appear disinterested in engaging in any conversation Mental Status Exam 2 MSE Comments: Patient is a 55 year old female who appeared her stated age covered by blankets with minimal eye contact. She was disinterested with no evidence of any abnormal involuntary motor movements, tics or tremors appreciated. Her speech was normal in regards to rhythm and prosody. She remained guarded throughout the interview. Her mood was described as okay. Her affect was blunted Her thought process was linear, logical, and goal-directed. Her thought content revealed no suicidal or homicidal ideation. There was no evidence of any delusional thinking. She did not appear to be responding to internal stimuli. She denied any auditory or visual hallucinations. She was alert and oriented to person, place, time, and situation. Her insight is impaired. Her impulse control appeared fair. Her judgment was limited. Her attention span appeared fair. Her recent and remote memory were limited. Vitals/I&O/Wt Last Vital Signs Temp 98.2 F 08/07/25 11:54 Pulse 76 08/07/25 11:54 Resp 19 H 08/07/25 11:54 BP 102/63 08/07/25 11:54 Pulse Ox 97 08/07/25 11:54 O2 Del Method Room Air 08/07/25 11:54 08/07/25 08/07/25 08/07/25 06:59 14:59 22:59 Intake Total 480 / 480 Balance 480 / 480 Weight last 48 hrs Weight 65.459 kg Data NPU 08/07/25 04:44 08/07/25 04:44 A&P Assessment and plan 1. Avoidant-restrictive food intake disorder (ARFID): 2. Unspecified psychosis: Plan: 55-year-old female who shows evidence of an eating disorder likely characterized by the avoidance or restriction of food intake along with history of psychosis. 1. Patient still awaiting placement at new facility with level 2 completed. 2. Plan for IM Invega 156mg on 08/09/25. 3. Increase Invega 6mg oral at night in attempt to facilitate improvement as it takes several days up to 2 weeks to achieve steady state levels of paliperidone after receiving both injections of Invega. 4. Encourage oral intake. 5. Patient needs referral to facility for IOP/inpatient or Partial Program for ARFID.-information given to guardian. PDMP PDMP Reviewed: Not Reviewed Attestations NPU 2 Medical Necessity Statement*: Inpatient psychiatric hospitalization not recommended at this time unless patient were to be placed in medical/psychiatric unit. Coding Level of Care Code Acute Code for Chg Fwd Diagnoses Avoidant-restrictive food intake disorder (ARFID) F50.82 Unspecified psychosis F29
[2025-08-07 16:25] VITALS: BP 109/69; PULSE 78; RESP 19; TEMP 36.7; O2SAT 100
[2025-08-07 19:43] VITALS: BP 103/66; PULSE 77; RESP 17; TEMP 36.3; O2SAT 98
[2025-08-08 05:37] LABS: Alanine Aminotransferase 19 U/L (0-33); Albumin Level 3.2 g/dL (3.5-5.2); Alkaline Phosphatase 46 U/L (35-105); Anion Gap 21.0 (5-19); Aspartate Amino Transferase 17 U/L (0-32); Blood Urea Nitrogen 10 mg/dL (6-20); Calcium 8.3 mg/dL (8.5-10.5); Carbon Dioxide 23 mmol/L (22-29); Chloride 102 mmol/L (98-107); Creatinine Clr Calc Pharmacy 105.3972; Globulin 2.4 g/dL (1.3-4.6); Glucose 81 mg/dL (65-115); Osmolality Calculated 294 mOsm/kg (285-295); Potassium 3.0 mmol/L (3.5-5.1); Sodium 143 mmol/L (136-145); Total Protein 5.6 g/dL (6.6-8.7)
[2025-08-08 07:12] VITALS: BP 105/68; PULSE 92; RESP 18; TEMP 36.9; O2SAT 96
[2025-08-08] MEDS: PRENATAL VIT NO.130/IRON/FOLIC 1 EACH TABLET PO (07:59)
[2025-08-08 11:40] VITALS: BP 111/72; PULSE 78; RESP 20; TEMP 36.4; O2SAT 98
--- NOTE | 2025-08-08 12:20 | P.PN_ITS ---
Subjective 2 Subjective: States feeling tired. Potassium again at 3.0. She did not eat the bananas that she ordered yesterday. Medications: Reviewed: Yes Vitals/I&O/Wt Last Vital Signs Temp 97.6 F 08/08/25 11:40 Pulse 78 08/08/25 11:40 Resp 20 H 08/08/25 11:40 BP 111/72 08/08/25 11:40 Pulse Ox 98 08/08/25 11:40 O2 Del Method Room Air 08/08/25 11:40 08/07/25 08/08/25 08/08/25 22:59 06:59 14:59 Intake Total 240 / 720 360 / 360 Balance 240 / 720 360 / 360 Weight last 48 hrs Weight 64.977 kg Weight 65.459 kg Physical Exam 2 Narrative: General: No acute distress, AO x3 HEENT: PERRLA, pupils bilaterally equal and reactive, pallors not present Chest: Normal vesicular breath sounds, no added sounds, equal good air entry bilaterally CVS: S1-S2 regular, no murmurs, no tachycardia, no gallops, no rubs Abdomen: Soft, nontender, stoma in place Neuro: No focal deficits, no facial deformity, AO x3, power 5/5 in all limbs Data 08/07/25 04:44 08/08/25 04:21 A&P Assessment and plan 1. Unspecified psychosis: 2. Avoidant-restrictive food intake disorder (ARFID): 3. History of cancer of rectosigmoid junction: 4. Hypokalemia: Plan: 55 year old female presenting after weight loss, not eating. Primary Eating disorder (avoidance/restriction of food intake) MDD H/O reported schizophrenia Moderate protein calorie malnutrition - one prior episode of anorexia, patient weighted 65 lbs, currently 128 lbs, BMI 22.7 - last ate on Thursday prior to admission. - CT demonstrated possible localized ileus vs. partial obstruction - General surgery consulted in ER, low suspicion for obstruction, no plans for intervention currently - psych consulted in ER - Patient lost IV access, OK to stay off IV fluids, If able to get IV access back, can cont. D5 1/2 NS with 20 K at 100 ml/hr until eating/drinking well. - recommend against invasive measures for feeding such as NGT or PEG. - has been refusing risperidone. - now on IM invega per psychiatry, should continue oral risperidone until this is fully active, although she has been refusing oral medications. H/O stage 4 colon cancer - prior rectal and bowel resection, ostomy in place - ostomy care, having good output. Diet: advance diet to regular. PPx: SCDs, start lovenox Disposition - full code - consult case mgmt for discharge planning, apparently she cannot return to her assisted living facility - LVL 2 will be completed on Thursday. - cont. home meds - discussed with daughter, concerned about the patient not taking risperidone, worried that she will start losing weight again. - now started on IM Invega - Patient needs referral to facility for IOP/inpatient or Partial Program for ARFID.-information given to guardian. - discharge planning after LVL 2 when accepting facility is found. August 07, 2025 No acute interim events. She is calm and cooperative. She has been drinking broth for breakfast and wants broth again for lunch. Discussed with her low potassium at 3.1. Discussed that hypokalemia may potentially be related to cardiac conduction abnormalities which could be fatal. She states that she would not like to take oral potassium due to its potential to cause GI irritation. Additionally does not want any IV potassium though cannot tell me exactly why. She is agreeable to trying bananas/high potassium foods to see if it can be repleted that way. She will eat 2 bananas today. Will check her potassium again with a.m. labs to assess for improvement. Disposition planning is ongoing. She is pending transfer to inpatient ARFID program. August 08, 2025 No acute interim events. Reports some generalized weakness. Discussed with her at length that her potassium is again low at 3.0. She is refusing oral or IV supplementation at this time. Yesterday she had agreed to eat some potassium rich fruits however on walking into her room these said fruits are uneaten. She states that the smell of bananas had set her off. Discussed with her potential risks of hypokalemia including but not limited to arrhythmias, muscular cramping, muscular weakness. She states she would like to trial oral potassium mixed with her broth today. This will be attempted at lunchtime. If unable to tolerate oral intake, strongly urged to consider letting us replace the potassium via IV. Currently patient is consuming 2 cups of broth at breakfast and lunch. Disposition planning is ongoing for appropriate placement. PDMP PDMP Reviewed: Not Reviewed Attestations 2 Medical Necessity Statement*: Ongoing appropriate disposition planning Coding Level of Care Code Acute Code for Chg Fwd Straight Forward/Low MDM includes number and complexity of problems actively addressed during encounter, amount and/or complexity of data reviewed/ordered and described risk of complication, morbidity or mortality of management as documented Diagnoses Unspecified psychosis F29 Avoidant-restrictive food intake disorder (ARFID) F50.82 History of cancer of rectosigmoid junction Z85.048 Hypokalemia E87.6
--- NOTE | 2025-08-08 14:18 | PC.NURSE ---
Patient has totally refused to take potassium with third cup of broth. Stated she will eat her bananas. Notified Dr. Resendiz of refusal. Dr. Resendiz then ordered IV potassium with Lidocain. There again patient stated she ate one banana since this nurse tried the first potassium. Patient refused an IV. Stated the Doctor said if I eat my bananas today I do not have to have any of that potassium. Notifed Dr. Resendiz of total refusal.
[2025-08-08 15:41] VITALS: BP 105/71; PULSE 75; RESP 18; TEMP 36.8; O2SAT 99
--- NOTE | 2025-08-08 18:01 | W.PM.NPUPNS ---
Subjective NPU Subjective: 55-year-old female with ARFIDS and history of psychosis currently on the medical surgical [facility]. The patient had continued to refuse oral intake with low potassium noted. She continued to avoid oral intake. She had reported that everything was fine once again. She had been refusing her oral paliperidone. Patient had reported that her mood was the same. Mental Status Exam MSE Comments: Patient is a 55 year old female who appeared her stated age covered by blankets with minimal eye contact. She was disinterested with no evidence of any abnormal involuntary motor movements, tics or tremors appreciated. Her speech was normal in regards to rhythm and prosody. She remained guarded throughout the interview. Her mood was described as okay. Her affect was flat. Her thought process was linear, logical, and goal-directed. Her thought content revealed no suicidal or homicidal ideation. There was no evidence of any delusional thinking. She did not appear to be responding to internal stimuli. She denied any auditory or visual hallucinations. She was alert and oriented to person, place, time, and situation. Her insight is impaired. Her impulse control appeared fair. Her judgment was limited. Her attention span appeared fair. Her recent and remote memory were limited. Vitals/I&O/Wt Last Vital Signs Temp 98.3 F 08/08/25 15:41 Pulse 75 08/08/25 15:41 Resp 18 08/08/25 15:41 BP 105/71 08/08/25 15:41 Pulse Ox 99 08/08/25 15:41 O2 Del Method Room Air 08/08/25 15:41 08/08/25 08/08/25 08/08/25 06:59 14:59 22:59 Intake Total 840 / 840 720 / 1560 Balance 840 / 840 720 / 1560 Weight last 48 hrs Weight 64.977 kg Weight 65.459 kg Data NPU 08/07/25 04:44 08/08/25 04:21 A&P Assessment and plan 1. Avoidant-restrictive food intake disorder (ARFID): 2. Unspecified psychosis: Plan: 55-year-old female who shows evidence of an eating disorder likely characterized by the avoidance or restriction of food intake along with history of psychosis. 1. Patient still awaiting placement at new facility with level 2 completed. 2. Plan for IM Invega 156mg on 08/09/25 ([facility]) 3. Increase Invega 6mg oral at night in attempt to facilitate improvement as it takes several days up to 2 weeks to achieve steady state levels of paliperidone after receiving both injections of Invega. 4. Encourage oral intake. 5. Patient needs referral to facility for IOP/inpatient or Partial Program for ARFID.-information given to guardian. PDMP PDMP Reviewed: Not Reviewed Attestations NPU Medical Necessity Statement*: Inpatient psychiatric hospitalization not recommended at this time unless patient were to be placed in medical/psychiatric unit. Coding Level of Care Code Acute Code for Chg Fwd Diagnoses Avoidant-restrictive food intake disorder (ARFID) F50.82 Unspecified psychosis F29
--- NOTE | 2025-08-08 19:30 | PC.NURSE ---
This nurse with night nurse doing in room shift report patient had curtain pulled. When stepping around the curtain, patient had IPad set up on record as patient stated she was doing some personal care. This nurse asked patient if her IPad was on record, patient stated she could see things better on record.
[2025-08-08 22:04] VITALS: BP 116/74; PULSE 75; TEMP 36.6; O2SAT 100
[2025-08-09 05:33] VITALS: BP 104/67; PULSE 90; RESP 17; TEMP 36.8; O2SAT 95
[2025-08-09 08:10] VITALS: BP 92/60; PULSE 91; RESP 17; TEMP 36.9; O2SAT 98
--- NOTE | 2025-08-09 09:03 | PC.SOCIAL ---
IMM Updated Updated pt's father on IMM. No questions voiced. Provided pt a copy. Initialed, dated, & timed copy in chart.
[2025-08-09] MEDS: PRENATAL VIT NO.130/IRON/FOLIC 1 EACH TABLET PO (11:32)
[2025-08-09 12:01] VITALS: BP 102/65; PULSE 78; RESP 18; TEMP 36.7; O2SAT 95
[2025-08-09 15:59] VITALS: BP 129/80; PULSE 79; RESP 18; TEMP 36.4; O2SAT 98
--- NOTE | 2025-08-09 16:36 | P.NPUPN_ITS ---
Subjective NPU 2 Subjective: 55-year-old female with ARFIDS and histo ry of psychosis currently [facility] She had continued to remain guarded. She had reported that she was doing fine. She continued to have limited engagement with this health underwriter and continue to report problems with the quality of food here. She continued to restrict her oral intake. Mental Status Exam 2 MSE Comments: Patient is a 55 year old female who appeared her stated age covered by blankets with minimal eye contact. She reported feelling cold. She was disinterested with no evidence of any abnormal involuntary motor movements, tics or tremors appreciated. Her speech was normal in regards to rhythm and prosody. She remained guarded throughout the interview. Her mood was described as fine Her affect was flat. Her thought process was linear, logical, and goal- directed. Her thought content revealed no suicidal or homicidal ideation. There was no evidence of any delusional thinking. She did not appear to be responding to internal stimuli. She denied any auditory or visual hallucinations. She was alert and oriented to person, place, time, and situation. Her insight is impaired. Her impulse control appeared fair. Her judgment was limited. Her attention span appeared fair. Her recent and remote memory were limited. Vitals/I&O/Wt Last Vital Signs Temp 97.5 F L 08/09/25 15:59 Pulse 79 08/09/25 15:59 Resp 18 08/09/25 15:59 BP 129/80 08/09/25 15:59 Pulse Ox 98 08/09/25 15:59 O2 Del Method Room Air 08/09/25 15:59 08/09/25 08/09/25 08/09/25 06:59 14:59 22:59 Intake Total 240 / 1800 720 / 720 Balance 240 / 1800 720 / 720 Weight last 48 hrs Weight 64.864 kg Weight 64.977 kg Data NPU 08/07/25 04:44 08/08/25 04:21 A&P Assessment and plan 1. Avoidant-restrictive food intake disorder (ARFID): 2. Unspecified psychosis: Plan: 55-year-old female who shows evidence of an eating disorder likely characterized by the avoidance or restriction of food intake along with history of psychosis. 1. Patient still awaiting placement at new facility with level 2 completed. 2. Plan for IM Invega 156mg today. 3. Continue Invega 6mg oral at night in attempt to facilitate improvement as it takes several days up to 2 weeks to achieve steady state levels of paliperidone after receiving both injections of Invega. 4. Encourage oral intake. 5. Patient needs referral to facility for IOP/inpatient or Partial Program for ARFID.-information given to guardian. PDMP PDMP Reviewed: Not Reviewed Attestations NPU 2 Medical Necessity Statement*: Inpatient psychiatric hospitalization not recommended at this time unless patient were to be placed in medical/psychiatric unit. Coding Level of Care Code Acute Code for Chg Fwd Diagnoses Avoidant-restrictive food intake disorder (ARFID) F50.82 Unspecified psychosis F29
--- NOTE | 2025-08-09 19:19 | PC.NURSE ---
Notified Dr. Nugent patient refused Invega injection.
[2025-08-09 20:00] VITALS: BP 103/63; PULSE 94; RESP 20; TEMP 36.6; O2SAT 97
--- NOTE | 2025-08-09 20:54 | PC.NURSE ---
When doing nighttime med pass, I brought in pt's Invega 6mg PO pill and pt refused it and said she does not want to take it. I reinforced what the meds purpose is and why she is prescribed it and pt still stated she does not want it. I talked with Dr. Steele and he said to document it and respect the pt's requests and wishes. Physician notification put it. Call light, belongings in reach, SR up x2, bed locked, lowest position. Pt states she does not need anything at this time.
--- NOTE | 2025-08-09 21:49 | P.PN_ITS ---
Subjective 2 Subjective: Patient is refusing to eat refused to have Ensure with possible choice taste and flavor. Patient is indeed a deep-seated psychiatric issue it is because of this the facility where the patient is calm and does not want her back otherwise patient is quiet and denies. Vitals/I&O/Wt Last Vital Signs Temp 97.9 F 08/09/25 20:00 Pulse 94 08/09/25 20:00 Resp 20 H 08/09/25 20:00 BP 103/63 08/09/25 20:00 Pulse Ox 97 08/09/25 20:00 O2 Del Method Room Air 08/09/25 15:59 08/09/25 08/09/25 08/09/25 06:59 14:59 22:59 Intake Total 240 / 1800 720 / 720 480 / 1200 Balance 240 / 1800 720 / 720 480 / 1200 Weight last 48 hrs Weight 64.864 kg Weight 64.977 kg Physical Exam 2 Narrative: Generally patient is quite pleasant smiles but will not do anything regarding eating or taking medications HEENT normocephalic atraumatic neck neck is supple cardiovascular heart rate is regular lungs are pretty much clear abdomen soft nontender nondistended unremarkable extremities are intact no edema has good pulses neurology has no focality lab studies lab studies reviewed and noted. Data 08/07/25 04:44 08/08/25 04:21 A&P Assessment and plan 1. Unspecified psychosis: 2. Anorexia: Plan: Anorexia with psychosis - Will continue to treat for care. - I am ordering Megace and multivitamin for appetite stimulator pads the problem is patient cannot take the medicine but will continue to try and offer - Placement is being arranged that we will follow through with both psychiatric problem and clinical problem with medical. PDMP PDMP Reviewed: Last Reviewed 08/09/25 21:54 by Genevieve Nugent MD Attestations 2 Medical Necessity Statement*: Patient is with psychosis and anorexia with history of schizophrenia and medical floor to optimize care. Need days for inpatient care. Coding Level of Care Code Acute Code for Chg Fwd Diagnoses Unspecified psychosis F29 Anorexia R63.0 Time Spent (min) 30
[2025-08-10] VITALS (8 sets, daily range): BP systolic 85–122; BP diastolic 54–78; PULSE 57–83; RESP 16–18; TEMP 36.5–36.8; O2SAT 93–99; BMI 23.6
--- NOTE | 2025-08-10 03:49 | PC.NURSE ---
Nurse notified of low b/p.
[2025-08-10] MEDS: PRENATAL VIT NO.130/IRON/FOLIC 1 EACH TABLET PO (06:01)
--- NOTE | 2025-08-10 15:43 | P.NPUPN_ITS ---
Subjective NPU 2 Subjective: 55-year-old female with ARFIDS and histo ry of psychosis currently on the medical surgical unit awaiting placement at an al[facility]. Patient had refused her Invega Sustenna 156 mg yesterday. She had conveniently reported that she was doing fine and there had been no major changes. She had reported that she was simply allowing and waiting for her food to digest before consuming any more food. She reported normal sleep and reported no problems with her mood currently. She continued to restrict her oral intake. Mental Status Exam 2 MSE Comments: Patient is a 55 year old female who appeared her stated age fleeting eye contact. She was disinterested with no evidence of any abnormal involuntary motor movements, tics or tremors appreciated. Her speech was normal in regards to rhythm and prosody. She remained guarded throughout the interview. Her mood was described as good. Her affect was restricted in range. Her thought process was linear, logical, and goal-directed. Her thought content revealed no suicidal or homicidal ideation. There was no evidence of any delusional thinking. She did not appear to be responding to internal stimuli. She denied any auditory or visual hallucinations. She was alert and oriented to person, place, time, and situation. Her insight is impaired. Her impulse control appeared fair. Her judgment was limited. Her attention span appeared fair. Her recent and remote memory were limited. Vitals/I&O/Wt Last Vital Signs Temp 97.7 F 08/10/25 11:45 Pulse 57 L 08/10/25 11:45 Resp 16 08/10/25 11:45 BP 105/54 08/10/25 12:51 Pulse Ox 99 08/10/25 11:45 O2 Del Method Room Air 08/10/25 11:45 08/10/25 08/10/25 08/10/25 06:59 14:59 22:59 Intake Total 960 / 960 Balance 960 / 960 Weight last 48 hrs Weight 66.2 kg Weight 64.864 kg Data NPU 08/07/25 04:44 08/08/25 04:21 A&P Assessment and plan 1. Avoidant-restrictive food intake disorder (ARFID): 2. Unspecified psychosis: Plan: 55-year-old female who shows evidence of an eating disorder likely characterized by the avoidance or restriction of food intake along with history of psychosis. 1. Patient still awaiting placement at new facility with level 2 completed. 2. Plan for IM Invega 156mg today. 3. Continue Invega 6mg oral at night in attempt to facilitate improvement as it takes several days up to 2 weeks to achieve steady state levels of paliperidone after receiving both injections of Invega. Injection of 156mg to be given today as per guardian request. 4. Encourage oral intake. 5. Patient needs referral to facility for IOP/inpatient or Partial Program for ARFID.-information given to guardian. PDMP PDMP Reviewed: Not Reviewed Attestations NPU 2 Medical Necessity Statement*: Inpatient psychiatric hospitalization not recommended at this time unless patient were to be placed in medical/psychiatric unit. Coding Level of Care Code Acute Code for Chg Fwd Diagnoses Avoidant-restrictive food intake disorder (ARFID) F50.82 Unspecified psychosis F29
[2025-08-10] MEDS: paliperidone palmitate 156 mg Syringe IM (16:02)
--- NOTE | 2025-08-10 18:46 | P.PN_ITS ---
Subjective 2 Subjective: Patient is wheelchair for disposition did clear him eating yesterday and also had a breakfast this morning Medications: Medication Review Details: Report related to the rounding team patient looking for placement father is the legal guardian Vitals/I&O/Wt Last Vital Signs Temp 97.9 F 08/10/25 16:27 Pulse 73 08/10/25 16:27 Resp 18 08/10/25 16:27 BP 99/66 08/10/25 16:27 Pulse Ox 99 08/10/25 16:27 O2 Del Method Room Air 08/10/25 16:27 08/10/25 08/10/25 08/10/25 06:59 14:59 22:59 Intake Total 960 / 960 980 / 1940 Balance 960 / 960 980 / 1940 Weight last 48 hrs Weight 66.2 kg Weight 64.864 kg Physical Exam 2 Narrative: General the patient is in no apparent distress HEENT normocephalic atraumatic neck neck is supple cardiovascular heart rate is regular lungs are pretty much clear abdomen soft nontender nondistended unremarkable extremities are intact no edema has good pulses neurology has no focality lab studies lab studies reviewed and noted. Data 08/07/25 04:44 08/08/25 04:21 A&P Assessment and plan 1. Anorexia: Plan: Patient with anorexia with psychiatric overtone Patient is beginning to eat some yesterday and also this morning had breakfast Will continue to manage patient still needs psychiatric care concerning eating disorder Patient lab studies were unremarkable for some reason for 1 that does not eat much or drink PDMP PDMP Reviewed: Last Reviewed 08/09/25 21:54 by Genevieve Nugent MD Attestations 2 Medical Necessity Statement*: Severe eating disorder at this time must continue to treat and have psychiatric component for treatment eating disorder looking into for placement to an appropriate facility that will accept the patient patient will need time. Coding Level of Care Code Acute Code for Chg Fwd Diagnoses Anorexia R63.0 Time Spent (min) 25
[2025-08-11 04:00] VITALS: BP 102/58; PULSE 72; RESP 16; TEMP 36.7; O2SAT 98
[2025-08-11] MEDS: PRENATAL VIT NO.130/IRON/FOLIC 1 EACH TABLET PO (05:13)
[2025-08-11 08:20] VITALS: BP 92/54; PULSE 92; RESP 15; TEMP 36.9; O2SAT 96
--- NOTE | 2025-08-11 08:59 | PC.SOCIAL ---
IMM Updated Updated pt's father on IMM. No questions voiced. Provided pt a copy. Initialed, dated, & timed copy in chart.
--- NOTE | 2025-08-11 10:50 | PM.DCS ---
Discharge Providers Date of Admission: 08/01/25 10:42 Date of Discharge: August 11, 2025 Attending Provider at Admission: Stuart Linn MD Attending Provider at Discharge: Maria Alejandra Resendiz MD Primary Care Provider: Cal Torres Diagnoses at Discharge Discharge Diagnosis 1. Anorexia: Reason for Visit Reason for Visit: not eating Hospital Course Hospital Course 55 year old female with PMH colorectal Ca s/p resection and currently with a colostomy, h/o being in hospice in 2019 due to failure to thrive, subsequently taken off once she recovered with inpatient treatment. Most recently she has been a custodial resident and had stopped eating and drinking there as she found food and water to be repulsive. Patient has a legal guardian that is her father. She denied any suicidal ideation. She had a lack of appetite. She denied any negative body image. She was admitted to the hospital currently on 07/31/2025 initially after there was a concern of small bowel obstruction. CT was performed which raise this possibility, however there was no clinical correlate of the same. There was no vomiting. Patient was able to have a stool output into her stoma. She was evaluated by general surgery and SBO excluded. Patient was seen by psychiatry and was diagnosed with avoidant restrictive food intake disorder. She was started on IM Invega x 2 shots on 08/04 and 08/10 as she refused to take oral risperidone or oral Invega.While in the hospital she has been eating some broth, bananas. She is discharged to [facility] today with recommendation to continue outpatient psychiatry care. She needs next Im Invega 156 mg in [address] incidentally notes soft tissue thickening in the presacral and precoccygeal area that could be secondary to postoperative or postradiation change however recurrent neoplasm in this area could have the same appearance. There are no comparison exams to determine the chronicity of these changes. Patient has currently been cancer free for over 10 years. She has not followed with oncology or colorectal surgery since at least 2019. Chronicity of the above findings is uncertain. Since patient is otherwise asymptomatic favor these to be postoperative changes. Of note patient does not have a rectal stump per history. Recommend serial CT in the next 4 to 6 weeks primary care physician, versus establish with oncology locally for further follow-up on this finding. Physical Exam Narrative: General: No acute distress, AO x3 HEENT: PERRLA, pupils bilaterally equal and reactive, pallors not present Chest: Normal vesicular breath sounds, no added sounds, equal good air entry bilaterally CVS: S1-S2 regular, no murmurs, no tachycardia, no gallops, no rubs Abdomen: Soft, colostomy in place Neuro: No focal deficits, no facial deformity, AO x3, power 5/5 in all limbs Discharge Data Studies Completed and Pending Completed Studies During Hospitalization Category Date Time Status CT abdomen pelvis w con* [id number] Stat Cat Scan 07/31/25 11:00 Completed Radiology Impressions Abdomen/Pelvis CT 07/31/25 11:00 IMPRESSION: 1. Mild to moderate fluid and gaseous distention of the duodenal C-loop. This could represent localized ileus or less likely partial obstruction. 2. RIGHT lower quadrant ostomy. 3. Postoperative changes in the region of the rectosigmoid colon. There is soft tissue thickening in the presacral and precoccygeal area that could be secondary to postoperative or postradiation change however recurrent neoplasm in this area could have the same appearance. There are no comparison exams to determine the chronicity of these changes. Laboratory Results WBC 5.13 10^3/uL (3.29-11.43) 08/07/25 04:44 RBC 3.82 10^6/uL (3.85-5.65) L 08/07/25 04:44 Hgb 11.80 g/dL (11.27-16.99) 08/07/25 04:44 Hct 34.1 % (36-47) L 08/07/25 04:44 MCV 89.3 fl (85-98) 08/07/25 04:44 MCH 30.9 pg (27-33) 08/07/25 04:44 MCHC 34.6 g/dL (30-55) 08/07/25 04:44 RDW 13.2 % (12.1-15.1) 08/07/25 04:44 Plt Count 132 10^3/cmm (157-399) L 08/07/25 04:44 MPV 12.1 fL (7.4-10.4) H 08/07/25 04:44 Neut % (Auto) 57.8 % 08/07/25 04:44 Lymph % (Auto) 31.2 % 08/07/25 04:44 [place] % (Auto) 8.8 % 08/07/25 04:44 Eos % (Auto) 1.6 % 08/07/25 04:44 Baso % (Auto) 0.2 % 08/07/25 04:44 Neut # (Auto) 2.97 10^3/uL (1.8-7.7) 08/07/25 04:44 Lymph # (Auto) 1.6 10^3/uL (0.8-4.8) 08/07/25 04:44 [place] # (Auto) 0.5 10^3/uL (0.2-0.9) 08/07/25 04:44 Eos # (Auto) 0.1 10^3/uL (0.0-0.8) 08/07/25 04:44 Baso # (Auto) 0.0 10^3/uL (0.0-0.1) 08/07/25 04:44 Nucleated RBC % (auto) 0 % 08/07/25 04:44 Nucleated RBCs # 0.0 /100WBC 08/07/25 04:44 Specimen Type Arterial 08/01/25 07:11 Sample Site Brachial, left 08/01/25 07:11 ABG pH 7.31 (7.35-7.45) L 08/01/25 07:11 ABG pCO2 31.3 mmHg (35-45) L 08/01/25 07:11 ABG pO2 101.0 mmHg (80.0-100.0) H 08/01/25 07:11 ABG PO2/FiO2 Ratio 480 08/01/25 07:11 ABG HCO3 15.6 mmol/L (22-26) L 08/01/25 07:11 ABG O2 Saturation 98.8 08/01/25 07:11 ABG Base Excess -9.5 mmol/L (-2.0-2.0) L 08/01/25 07:11 Leo Test N/a 08/01/25 07:11 A-a O2 Gradient 0.9 mmHg (5-10) L 08/01/25 07:11 Hematocrit 44.5 % (37-47) 08/01/25 07:11 Hgb O2 Saturation 96.8 % (95-100) 08/01/25 07:11 Carboxyhemoglobin 0.9 %THgb (0.4-20.1) 08/01/25 07:11 Methemoglobin 1.1 % (0.4-1.5) 08/01/25 07:11 Total Hemoglobin 14.5 g/dL (12-16) 08/01/25 07:11 Sodium 142.0 mmol/L (131-143) 08/01/25 07:11 Potassium 3.9 mmol/L (3.5-5.0) 08/01/25 07:11 Glucose 138.0 mg/dL (70-115) H 08/01/25 07:11 Ionized Calcium 1.3 mmol/L (1.1-1.4) 08/01/25 07:11 O2 Delivery Device Room air 08/01/25 07:11 FiO2 21.0 % 08/01/25 07:11 C S S Representative ID Gd 08/01/25 07:11 Sodium 143 mmol/L (136-145) 08/08/25 04:21 Potassium 3.0 mmol/L (3.5-5.1) L 08/08/25 04:21 Chloride 102 mmol/L (98-107) 08/08/25 04:21 Carbon Dioxide 23 mmol/L (22-29) 08/08/25 04:21 Anion Gap 21.0 (5-19) H 08/08/25 04:21 BUN 10 mg/dL (6-20) 08/08/25 04:21 Creatinine 0.6 mg/dL (0.5-0.9) 08/08/25 04:21 GFR Calculation 104.6 mL/min (90-130) 08/08/25 04:21 Glucose 81 mg/dL (65-115) 08/08/25 04:21 POC Glucose 158 mg/dL (70-110) H 08/01/25 00:58 Calculated Osmolality 294 mOsm/kg (285-295) 08/08/25 04:21 Calcium 8.3 mg/dL (8.5-10.5) L 08/08/25 04:21 Total Bilirubin 0.5 mg/dL (0.15-1.2) 08/08/25 04:21 AST 17 U/L (0-32) 08/08/25 04:21 ALT 19 U/L (0-33) 08/08/25 04:21 Alkaline Phosphatase 46 U/L (35-105) 08/08/25 04:21 Total Protein 5.6 g/dL (6.6-8.7) L 08/08/25 04:21 Albumin 3.2 g/dL (3.5-5.2) L 08/08/25 04:21 Globulin 2.4 g/dL (1.3-4.6) 08/08/25 04:21 Salicylates < 0.3 mg/dL (3-10) L 07/31/25 11:04 Acetaminophen < 5.0 ug/mL (10-30) L 07/31/25 11:04 Serum Ketones Positive (Negative) H 08/01/25 04:18 Vitals Last Vital Signs Temp 98.4 F 08/11/25 08:20 Pulse 92 08/11/25 08:20 Resp 15 08/11/25 08:20 BP 92/54 08/11/25 08:20 Pulse Ox 96 08/11/25 08:20 O2 Del Method Room Air 08/11/25 08:20 Discharge Plan Discharge Patient Disposition: Xfer SNF Condition: Stable Prescriptions: New Invega Sustenna 156 mg/mL syringe 156 mg IM ONCE 1 Days Qty: 1 0RF Rx Instructions: to be administered next on Sep and then per psychiatry Continued acetaminophen [Tylenol Extra Strength] 500 mg Tablet 500 mg PO Q6H PRN (Reason: Fever Or Pain) pantoprazole 40 mg tablet,delayed release (DR/EC) 40 mg PO DAILY polyethylene glycol 3350 17 gram/dose Powder 17 g PO DAILY PRN (Reason: Constipation) PNV no.95-ferrous fumarate-FA [] 28 mg iron- 800 mcg Tablet 1 tab PO DAILY Discontinued risperidone 0.5 mg tablet 0.5 mg PO BID Discharge Order = DC NOW: Discharge Order (Routine); Ordered 08/11/25 Ordered By: Maria Alejandra Resendiz Referrals: [facility] [Outside] Cal Torres [Primary Care Provider, Family Practice] Patient Instructions: Opioid Safety, Patient Portal & Maurice Instructions Discharge Attestations Time Spent in Discharge Care*: greater than 30 min Quality Metrics Clinical Quality Measures [ No reported AMI, CVA or VTE this stay] Coding Level of Care Code Acute Code for Chg Fwd Diagnoses Anorexia R63.0
[2025-08-11 11:57] VITALS: BP 92/54; PULSE 92; O2SAT 97
== END 2025-08-11 12:14 | disposition skilled nursing facility (03) | DRG 887 ==
LOC: ER 16:05 → ER IP 16:20 → MEDSURG 16:44
PROVIDERS: Admitting Provider Internal Medicine; Emergency Provider Family Medicine; Family Provider Family Medicine; PCP Family Medicine; Visit Provider Student in an Organized Health Care Education/Training Program
DX: F50.82 Avoidant/restrictive food intake disorder (principal); E44.0 Moderate protein-calorie malnutrition; Z68.23 Body mass index [BMI] 23.0-23.9, adult; T43.596A Underdosing of other antipsychotics and neuroleptics, initial encounter; F25.1 Schizoaffective disorder, depressive type; R62.7 Adult failure to thrive; E87.6 Hypokalemia; Z93.3 Colostomy status; Z85.038 Personal history of other malignant neoplasm of large intestine; Z92.3 Personal history of irradiation; Z90.49 Acquired absence of other specified parts of digestive tract; Z91.128 Patient's intentional underdosing of medication regimen for other reason
CPT/HCPCS: 36415; 36416; 36600; 74177; 80048; 80051; 80053; 80307; 82009; 82330; 82805; 82962; 85025; 96372; 96374; 96375; 99285; G0378; J1200; J1650; J2919; J9999